=== PATIENT | female | born 1955 | race Caucasian/White ===

== ENCOUNTER → 2016-07-31 | Outpatient (CLI) | payer BC ==
--- NOTE | 2016-07-31 13:32 | PN ---
DATE OF SERVICE: 07/31/2016 A 61-year-old lady had been followed in sleep center for treatment of obstructive sleep apnea hypopnea syndrome. Patient continues successfully sing her CPAP equipment without any significant problems related to the mask or machine. [place] Sleepiness Scale today is 2. I checked patient's CPAP unit. Usage is said 30 out of 30 nights, 26 out of 30 nights for more than 4 hours, average 6.3 hours. Pressure in the machine 8 cm of water. Leak is 6 L per minute, which is great. Apnea-hypopnea index for the last month is only 1.1, which is perfect. MEDICATIONS: Zantac, Flonase, gabapentin, simvastatin, Elavil. PHYSICAL EXAMINATION: During physical exam, the patient is in no distress. VITAL SIGNS: BP 145/84, HR 80, RR 16. Height 5 feet, 5 inches. Weight 185, BMI 30.7. Temp 98.3. HEENT: PERRLA, EOMI. Oropharynx low position of soft palate. NECK: Supple. No JVD, Thyroid is not palpable. LUNGS: Clear to percussion and to auscultation. Good air exchange. No wheezing or rhonchi. HEART: S1, S2 regular. No murmurs, gallops, or rubs. ABDOMEN: Slightly obese. POLICE CAPTAIN PRECINCT: Awake, alert, and oriented x3. Cranial nerves 2 to 7 intact. There is no fasciculation or atrophy noted. No focal deficits observed. IMPRESSION: 1. Obstructive sleep apnea-hypopnea syndrome on full control with CPAP at the pressure of 8 cm of water. Patient demonstrated great compliance with treatment benefiting from treatment. 2. Mild obesity. 3. History of migraines, it is improved. 4. History of TMJ problems. PLAN: 1. Continue treatment with CPAP with the same regimen. 2. Watching weight. 3. Prescription for all necessary CPAP supplies, including mask, tube, filters. 4. No driving if feeling any sleepiness. 5. Follow-up visit in 1 year. Thank you very much for allowing me to participate in management of your patient. Sincerely, Horacio Bello MD, PhD, FAASM Diplomat of [place] [employer], Sleep Medicine Board by [place] [employer] [place] [employer] Certified Medical Dosimetrist of [facility] [place]
== END ==
LOC: SLEEP 10:09
PROVIDERS: ATTEND Internal Medicine
DX: G47.33 Obstructive sleep apnea (adult) (pediatric) (principal); E66.9 Obesity, unspecified; G43.909 Migraine, unspecified, not intractable, without status migrainosus; Z79.899 Other long term (current) drug therapy

== ENCOUNTER → 2016-08-09 | Outpatient (CLI) | payer OTHER, BC ==
[2016-08-09 10:40] LABS: Basophils # (A) 0.1 k/uL (0-0.2); Basophils % (A) 1 %; CH 29.9; CHCM 33.3; Eosinophils # (A) 0.3 k/uL (0-0.7); Eosinophils % (A) 4 %; HGB 13.7 gm/dL (11.4-16.0); Luc # (Auto) 0.29; Luc % (Auto) 3; Lymphocytes # (A) 3.1 k/uL (1.0-4.8); Lymphocytes % (A) 35 %; MCH 30.2 pg (25.0-35.0); MCHC 33.4 g/dL (31.0-37.0); MCV 90.3 fL (80.0-100.0); Mean Platelet Volume 6.8; Monocytes # (A) 0.6 k/uL (0-1.0); Monocytes % (A) 6 %; Neutrophils # (A) 4.5 k/uL (1.3-7.7); Neutrophils % (A) 51 %; RBC 4.54 m/uL (3.80-5.40); RDW 13.3 % (11.5-15.5); WBC 8.8 k/uL (3.8-10.6); WBC (Perox) 8.42
[2016-08-09 10:51] LABS: ALT 47 U/L (9-52); AST 32 U/L (14-36); Alkaline Phosphatase 65 U/L (38-126); Anion Gap 11 mmol/L; Blood Urea Nitrogen 17 mg/dL (7-17); Calcium 9.8 mg/dL (8.4-10.2); Carbon Dioxide 31 mmol/L (22-30); Chloride 100 mmol/L (98-107); Cholesterol 180 mg/dL (<200); Glucose 89 mg/dL (74-99); HDL Cholesterol 78 mg/dL (40-60); Non-African American GFR(MDRD) >60 (>60 ml/min/1.73 sqM); Potassium 4.8 mmol/L (3.5-5.1); Sodium 142 mmol/L (137-145); Total Bilirubin 0.5 mg/dL (0.2-1.3); Total Protein 7.6 g/dL (6.3-8.2); Triglycerides 104 mg/dL (<150)
[2016-08-09 14:30] LABS: Hemoglobin A1C 5.8 % (4.2-6.1)
== END | disposition home or self-care (01) ==
LOC: LABWHC1 10:04
PROVIDERS: ATTEND Internal Medicine Geriatric Medicine
DX: K21.9 Gastro-esophageal reflux disease without esophagitis (principal); R79.9 Abnormal finding of blood chemistry, unspecified; E78.5 Hyperlipidemia, unspecified
CPT/HCPCS: 36415; 80053; 80061; 83036; 84439; 84443; 85025

== ENCOUNTER → 2016-08-26 | Outpatient (CLI) | payer OTHER, BC ==
--- NOTE | 2016-08-27 08:34 | MM ---
Reason for exam: screening (asymptomatic). Last mammogram was performed 3 years ago. History: Patient is postmenopausal. Family history of breast cancer in sister at age 54. Took estrogen for 1 year beginning at age 48. Physical Findings: A clinical breast exam by your physician is recommended on an annual basis and results should be correlated with mammographic findings. MG 3D Screening Mammo W/Cad Bilateral CC and MLO view(s) were taken. Prior study comparison: August 30, 2013, bilateral MG screening mammo w CAD. July 01, 2012, CAD bilateral diagnostic mammogram. November 05, 2009, bilateral diagnostic digital mammog. The breast tissue is heterogeneously dense. This may lower the sensitivity of mammography. Finding: There is a 20 mm circumscribed round mass located 4 cm from the nipple in the lower outer quadrant, anterior position of the left breast also 6mm lesion posterior outer position. New finding since August 30, 2013, July 01, 2012, and November 05, 2009. ASSESSMENT: Incomplete: need additional imaging evaluation, BI-RAD 0 RECOMMENDATION: Ultrasound of the left breast. [facility] will attempt to contact patient to return for ultrasound.
== END | disposition home or self-care (01) ==
LOC: RADMAMWWP 12:58
PROVIDERS: ATTEND Internal Medicine Geriatric Medicine
DX: Z12.31 Encounter for screening mammogram for malignant neoplasm of breast (principal)
CPT/HCPCS: 77063; G0202

== ENCOUNTER → 2016-09-03 | Outpatient (CLI) | payer OTHER, BC ==
--- NOTE | 2016-09-03 10:17 | USB ---
Reason for exam: additional evaluation requested from abnormal screening. History: Patient is postmenopausal. Family history of breast cancer in sister at age 54. Took estrogen for 1 year beginning at age 48. Physical Findings: Nurse did not find any significant physical abnormalities on exam. US Breast Workup LT Left breast ultrasound includes all four quadrants, the retroareolar region and axilla. Finding demonstrates a 10 x 6 x 8mm oval, cystic lesion at 12 o'clock, a 20 x 10 x 17mm oval, cystic lesion at 4 o'clock 4cm from nipple and a 2mm lesion too small to characterize at 9 o'clock. These results were verbally communicated with the patient and result sheet given to the patient on 09/03/16. ASSESSMENT: Benign, BI-RAD 2 RECOMMENDATION: Return to routine screening mammogram schedule for both breasts.
== END | disposition home or self-care (01) ==
LOC: RADUSWWP 09:01
PROVIDERS: ATTEND Internal Medicine Geriatric Medicine
DX: R92.8 Other abnormal and inconclusive findings on diagnostic imaging of breast (principal)

== ENCOUNTER → 2016-09-08 | Outpatient (CLI) | payer OTHER, BC ==
--- NOTE | 2016-09-08 15:36 | MR ---
EXAMINATION TYPE: MR cervical spine wo con DATE OF EXAM: 09/08/2016 COMPARISON: NONE HISTORY: Neck and Arm Pain x4 years TECHNIQUE: Multiplanar, multisequence images of the cervical spine were acquired. C2-C3: No evidence for degenerative disc disease. No disc bulge/herniation or protrusion. No Canal stenosis. Foramina are patent bilaterally. C3-C4: There is a tiny central disc protrusion with minimal anterior thecal sac compression. No AP sp inal canal stenosis is present. Neural foramen are patent C4-C5: Mild disc space narrowing is present. Very minimal posterior endplate disc bulge is present. M ild uncovertebral joint hypertrophy is present. No spinal canal stenosis or significant foraminal mian nosis is present. C5-C6: There is mild disc bulge centrally with mild anterior thecal sac compression. No AP spinal can al stenosis present. No cord contact is evident. No spinal canal stenosis is present. There is mild l eft foraminal narrowing due to uncovertebral joint hypertrophy. C6-C7: No evidence for degenerative disc disease. No disc bulge/herniation or protrusion. No Canal stenosis. Foramina are patent bilaterally. C7-T1: No evidence for degenerative disc disease. No disc bulge/herniation or protrusion. No Canal stenosis. Foramina are patent bilaterally. Cervical segments are intact. There is normal alignment. Cervical spinal cord is of normal signal. Craniovertebral junction relationships are within normal limits. IMPRESSION: Mild disc bulge is present C3-4, C4-5, C5-C6 discussed above. No stenosis is evident. 2. Mild left foraminal narrowing C5-6 due to uncovertebral joint hypertrophy.
== END | disposition home or self-care (01) ==
LOC: RADMRIMAIN 14:40
PROVIDERS: ATTEND Psychiatry & Neurology Neurology
DX: M99.71 Connective tissue and disc stenosis of intervertebral foramina of cervical region (principal); M50.11 Cervical disc disorder with radiculopathy, high cervical region; M48.8X2 Other specified spondylopathies, cervical region; G99.2 Myelopathy in diseases classified elsewhere; R29.2 Abnormal reflex; R26.9 Unspecified abnormalities of gait and mobility
CPT/HCPCS: 72141

== ENCOUNTER → 2017-02-11 | Outpatient (CLI) | payer OTHER, BC ==
--- NOTE | 2017-02-11 17:39 | US ---
EXAMINATION TYPE: US transvaginal DATE OF EXAM: 02/11/2017 COMPARISON: 02/06/2016 CLINICAL HISTORY: Pelvic Pain R10.2. history of left ovarian cyst TECHNIQUE: Transvaginal (TV) Date of LMP: 15 years ago EXAM MEASUREMENTS: Uterus: 6.8 x 3.3 x 5.2 cm Endometrial Stripe: 0.3 cm Right Ovary: 1.0 x 3.1 x 1.6 cm Left Ovary: 5.2 x 4.1 x 5.0 cm 1. Uterus: Anteverted heterogeneous echotexture 2. Endometrium: wnl 3. Right Ovary: wnl 4. Left Ovary: large cyst measures 4.8 x 4.6 x 4.4 cm 5. Bilateral Adnexa: wnl 6. Posterior cul-de-sac: no free fluid IMPRESSION: There is a simple large left ovarian cysts that are appears slightly increased in size co mpared to old exam. Previous exam measures 4.1 cm. Today's exam measures 4.5 cm.
== END | disposition home or self-care (01) ==
LOC: RADUSWWP 16:54
PROVIDERS: ATTEND Internal Medicine Geriatric Medicine
DX: N83.292 Other ovarian cyst, left side (principal)
CPT/HCPCS: 76830

== ENCOUNTER → 2017-03-03 | Outpatient (CLI) | payer OTHER, BC ==
[2017-03-03 11:17] LABS: Basophils # (A) 0.1 k/uL (0-0.2); Basophils % (A) 1 %; Eosinophils # (A) 0.2 k/uL (0-0.7); Eosinophils % (A) 2 %; HCT 40.4 % (34.0-46.0); HGB 13.2 gm/dL (11.4-16.0); Lymphocytes # (A) 3.1 k/uL (1.0-4.8); Lymphocytes % (A) 34 %; MCH 29.9 pg (25.0-35.0); MCHC 32.6 g/dL (31.0-37.0); MCV 91.7 fL (80.0-100.0); Mean Platelet Volume 7.6; Monocytes # (A) 0.7 k/uL (0-1.0); Monocytes % (A) 7 %; Neutrophils % (A) 54 %; Platelet Count 437 k/uL (150-450); RDW 12.7 % (11.5-15.5); WBC 9.2 k/uL (3.8-10.6)
== END | disposition home or self-care (01) ==
LOC: LABPAT 09:59
PROVIDERS: ATTEND Obstetrics & Gynecology Obstetrics
DX: Z01.818 Encounter for other preprocedural examination (principal); Z01.812 Encounter for preprocedural laboratory examination; N83.202 Unspecified ovarian cyst, left side
CPT/HCPCS: 36415; 85025; 93005

== ENCOUNTER 2017-03-10 10:25 | Day surgery (SDC) | payer OTHER, BC ==
[2017-03-03 12:08] VITALS: BMI 30.7
[~2017-03-10 10:25] MED LIST: ACETAMINOPHEN IV (For NPO) 1,000 MG in EMPTY BAG 1 BAG IVPB ONE; DEXAMETHASONE SOD PHOSPHATE 10 MG/ML 1 ML VIAL IV ONE; LACTATED RINGERS 1,000 ML IV SCH; MIDAZOLAM 2 MG/2 ML VIAL IV PRN; SCOPOLAMINE 1.5MG/72HR PATCH TRANSDERM ONE; ceFAZolin IN SWFI 2 GM/20 ML SYRINGE IVP ONE
[2017-03-10] MEDS: ONDANSETRON 4 MG/2 ML VIAL IVP ONE ×2 (11:37→13:42)
[2017-03-10] MEDS ORDERED: KETOROLAC 30 MG/ML 1 ML VIAL ONE (12:06)
[2017-03-10] MEDS ORDERED: NEOSTIGMINE 1 MG/ML 10 ML VIAL ONE (12:06)
[2017-03-10] MEDS ORDERED: DEXAMETHASONE SOD PHOS (MDV) 100 MG/10 ML VIAL ONE (12:06)
[2017-03-10] MEDS ORDERED: fentaNYL (PF) 50 MCG/ML 2 ML AMP ONE (12:06)
[2017-03-10] MEDS ORDERED: ROCURONIUM BROMIDE 10 MG/ML 10 ML VIAL IV ONE (12:06)
[2017-03-10] MEDS ORDERED: SUCCINYLCHOLINE CHLORIDE 100 MG/5 ML SYR IV ONE (12:06)
[2017-03-10] MEDS ORDERED: MIDAZOLAM 2 MG/2 ML VIAL ONE (12:06)
[2017-03-10] MEDS ORDERED: PROPOFOL 10 MG/ML 20 ML VIAL IV ONE (12:06)
[2017-03-10] MEDS ORDERED: GLYCOPYRROLATE 0.2 MG/ML 2 ML VIAL ONE (12:06)
[2017-03-10] MEDS ORDERED: LIDOCAINE 1% INJ 10MG/ML (20 ML MDV) SQ ONE (12:45)
[2017-03-10] MEDS ORDERED: LACTATED RINGERS 1,000 ML IV ONE (12:54)
--- NOTE | 2017-03-10 12:59 | P.OP ---
Date of Procedure: 03/10/17 Preoperative Diagnosis: Left ovarian cyst, left lower quadrant pain Postoperative Diagnosis: Same Procedure(s) Performed: Operative laparoscopy left salpingo-oophorectomy Anesthesia: GETA Surgeon: Sophie Hearn Estimated Blood Loss (ml): 10 IV fluids (ml): 850 Urine output (ml): 50 Pathology: other (Left ovary and tube) Condition: stable Disposition: PACU Indications for Procedure: Large left ovarian cyst, simple in nature, pelvic pain Operative Findings: Left simple ovarian cyst Description of Procedure: After informed consent was obtained in the preoperative area and risks were reviewed in detail including but not limited to infection, bleeding, damage to bladder, bowel, ureteric injury patient signed consent and was taken back to the operating room. Gen. anesthesia was obtained by the anesthesia per without difficulty. She was then prepped and draped in normal sterile fashion in the dorsal lithotomy position red rubber catheter was then used to drain the bladder clear yellow urine. A weighted speculum was placed in the posterior the anterior lip of the cervix is visualized and grasped with a single-tooth tenaculum. An acorn uterine regular diet was advanced into the cervical canal as a means to maneuver the uterus throughout the procedure. Attention was turned to the patient's abdomen where in the umbilical fold small incision is made and through this incision, the Veress needle is placed and once it was deemed to be in appropriate position with a drop of CO2 pressure with insufflation of CO2 gas to his insufflation was allowed to occur.. 3 L of gas were used to obtain pneumoperitoneum at this time a 5 mm trocar with a laproscope in place placed through the skin incision and toward the pneumoperitoneum. The left ovarian cyst was visualized at this time the additional port sites are placed in the right lower quadrant under direct visualization this is a 5 mm trocar placed without difficulty. The additional port site on the left lower quadrant a 10 mm trocar and sleeve was placed in addition under direct visualization. The left fallopian tube is elevated and the utero-ovarian ligament is grasped with the LigaSure device and transected this continued through the broad toward the infundibulopelvic ligament the IP was then grasped and coagulated distally and proximally and divided. Hemostasis was appreciated throughout. The left ovary and tube was then placed in an Endo Catch bag and delivered through the 10 mm port incision. Skin incisions were then closed after excellent hemostasis was noted. The skin incisions were closed with 4-0 Vicryl in a subcuticular fashion band aids were applied as needed. The CO2 tenaculum was removed from the anterior lip of the cervix and hemostasis was appreciated. OR correct 2 and patient tolerated procedure well
[2017-03-10 13:15] VITALS: RESP 16; TEMP 97.1
[2017-03-10] MEDS: MORPHINE SULFATE 4 MG/ML SYRINGE IV PRN ×2 (13:39→13:48)
[2017-03-10] MEDS ORDERED: diphenhydrAMINE 50 MG/ML 1 ML VIAL IVP ONE ×2 (13:52)
[2017-03-10] MEDS ORDERED: HYDROcodone/APAP 5-325MG 1 EACH TAB PO ONE (15:10)
[2017-03-10 16:36] VITALS: PULSE 58
[2017-03-10 16:46] VITALS: BP 123/68
== END 2017-03-10 17:28 | disposition home or self-care (01) ==
LOC: OR 10:25
PROVIDERS: ATTEND Obstetrics & Gynecology Obstetrics
DX: D27.1 Benign neoplasm of left ovary (principal); J45.909 Unspecified asthma, uncomplicated; E78.00 Pure hypercholesterolemia, unspecified; G47.33 Obstructive sleep apnea (adult) (pediatric); Z79.899 Other long term (current) drug therapy; Z88.1 Allergy status to other antibiotic agents; Z88.5 Allergy status to narcotic agent; Z88.8 Allergy status to other drugs, medicaments and biological substances
CPT/HCPCS: 88307; 58661; J2250; J2270; J1200; J1100 ×2; J2710; J2405; J2001; J3010; J1885; J0131; J0330; J2704

== ENCOUNTER → 2017-08-20 | Outpatient (CLI) | payer OTHER, BC ==
--- NOTE | 2017-08-20 12:11 | SFUN ---
SLEEP CENTER FOLLOW UP NOTE DATE OF SERVICE: 08/20/2017 A 62-year-old lady who has been followed in the Sleep Center for treatment of obstructive sleep apnea-hypopnea syndrome. Patient was using her CPAP for many years and told us years she was fine with the CPAP, but for the last several months, patient developed some problem related to the machine. She had multiple awakenings from sleep, although she is using the machine about the same way as she usually does, and she feels some discomfort in her face. She continued to use the same nasal pillow mask as before. I checked patient's CPAP unit. CPAP pressure is 8 cm of water. It is 100% of the time more than 4 hours. Average usage is 6.5 hours. Pressure is 8 cm of water. Sleep is 13 L/minute which is in normal range. Apnea-hypopnea index for the last month only 0.9, which is normal for the last 6 months is 0.8, which is absolutely normal. [place] Sleepiness Scale today is 7. MEDICATION: Flonase, gabapentin, simvastatin, Elavil. PHYSICAL EXAM: Patient in no distress. BP 129/65, HR 79, RR 18, height 5, 5 inches, weight 189.0, which increased weight on about 4 pounds compared to the previous visit. BMI 30.9, temperature 99.7, oxygen saturation room air 95%. OROPHARYNX: Low position of soft palate. ABDOMEN: Sightly obese. Neck Supple, no JVD. Thyroid is not palpable. LUNGS Clear to percussion and to auscultation. Good air exchange. No wheezing or rhonchi. HEART S1, S2 regular. No murmurs, gallops, or rubs. EXTREMITIES No clubbing or cyanosis. BODY SHOP ESTIMATOR Awake, alert, and oriented X3. Cranial nerves 2 to 7 intact. There is no fasciculation or atrophy. noted. No focal deficits observed. IMPRESSION: 1. Obstructive sleep apnea-hypopnea syndrome. Patient demonstrated great compliance with treatment, benefitting from treatment. 2. Mild obesity. 3. History of TMJ problem in the past. 4. History of migraines, not at the present time. 5. Status post oophorectomy on left side for cyst in February of 2017. PLAN: 1. I will adjust pressure in the machine to automatic regimen so with a maximal pressure of 8 and minimal pressure of 5. 2. Patient will continue to use her CPAP equipment every night. 3. Sleep hygiene with regular time in bed for at least 8 hours. 4. No driving if feeling sleepiness. 5. I will see patient for followup visit in 1 month. Thank you very much for allowing me to participate in the management of your patient. Sincerely, Horacio Bello MD, PhD, FAAS Diplomat of [place] [employer] Special[employer] [employer] Medicine Accounts Receivable Associate of [facility] [place] MMODL / DANNYN: [id number] /
== END | disposition home or self-care (01) ==
LOC: SLEEP 10:25
PROVIDERS: ATTEND Internal Medicine
DX: G47.33 Obstructive sleep apnea (adult) (pediatric) (principal); E66.9 Obesity, unspecified; Z99.89 Dependence on other enabling machines and devices; Z79.52 Long term (current) use of systemic steroids; Z79.899 Other long term (current) drug therapy; Z87.39 Personal history of other diseases of the musculoskeletal system and connective tissue; Z86.69 Personal history of other diseases of the nervous system and sense organs; Z90.721 Acquired absence of ovaries, unilateral; Z68.30 Body mass index [BMI] 30.0-30.9, adult

== ENCOUNTER → 2017-08-28 | Outpatient (CLI) | payer OTHER, BC ==
--- NOTE | 2017-08-31 12:29 | MM ---
Reason for exam: screening (asymptomatic). Last mammogram was performed 1 year ago. History: Patient is postmenopausal. Family history of breast cancer in sister at age 54. Took estrogen for 1 year beginning at age 48. Physical Findings: A clinical breast exam by your physician is recommended on an annual basis and results should be correlated with mammographic findings. MG Screening Mammo w CAD Bilateral CC and MLO view(s) were taken. Prior study comparison: August 26, 2016, bilateral MG 3d screening mammo w/cad. August 30, 2013, bilateral MG screening mammo w CAD. The breast tissue is heterogeneously dense. This may lower the sensitivity of mammography. Finding: There is a new typically benign 7 mm equal density (isodense), partially obscured round mass in the upper outer quadrant, middle position of the left breast. New finding since August 26, 2016 and August 30, 2013. ASSESSMENT: Incomplete: need additional imaging evaluation, BI-RAD 0 RECOMMENDATION: Ultrasound of the left breast. [facility] will attempt to contact patient to return for ultrasound.
== END | disposition home or self-care (01) ==
LOC: RADMAMWWP 09:45
PROVIDERS: ATTEND Obstetrics & Gynecology Obstetrics
DX: Z12.31 Encounter for screening mammogram for malignant neoplasm of breast (principal); Z80.3 Family history of malignant neoplasm of breast
CPT/HCPCS: 77067

== ENCOUNTER → 2017-09-03 | Outpatient (CLI) | payer OTHER, BC ==
--- NOTE | 2017-09-03 12:09 | SFUN ---
SLEEP CENTER FOLLOW UP NOTE DATE OF SERVICE: 09/03/2017 A 62-year-old lady who has been followed in sleep center for treatment of obstructive sleep apnea-hypopnea syndrome. Patient continued to use her CPAP equipment every night. Recently she developed some problems with the CPAP, which she did not have for several years. The patient was able to use CPAP equipment well for several years and just recently again developed some problem while using her CPAP. She developed some discomfort in her face in the frontal area and mid face area. A CPAP titration done with CPAP titration and pressure up to 9 cm of water. On all pressures, respiration was in normal range. Today, check her CPAP unit. CPAP pressure is 6 cm of water. Usage is 28/30 nights more than 4 hours. Average usage is 6.4 hours. Leak 10 L/minute which is in more normal range. Apnea-hypopnea index reading only 1.1, which is totally normal. [place] Sleepiness Scale today is 14. I discussed results of the sleep study with the patient. MEDICATIONS: Flonase, gabapentin, simvastatin, Elavil. PHYSICAL EXAM: During physical exam, patient in no distress. VITAL SIGNS: BP 156/67, HR 88, blood pressure on the left arm 134/64, temp is 98.5, oxygen saturation room air 98%. Height 5 feet 5 inches, weight 189, BMI 30.9. HEENT: PERRLA, EOMI. Slight restriction of nasal breathing bilaterally. Moderately low position of soft palate. NECK: Supple, no JVD. Thyroid is not palpable. LUNGS: Clear to percussion and to auscultation. Good air exchange. No wheezing or rhonchi. HEART: S1, S2 regular. No murmurs, gallops, or rubs. ABDOMEN: Slightly obese. EXTREMITIES: No clubbing or cyanosis. INSPECTOR BALANCE WHEEL MOTION: Awake, alert, and oriented X3. Cranial nerves 2 to 7 intact. There is no fasciculation or atrophy. noted. No focal deficits observed. IMPRESSION: 1. Obstructive sleep apnea-hypopnea syndrome. The patient demonstrated very good compliance with treatment benefitting from treatment. 2. Mild obesity. 3. History of TMJ problem in the past. 4. History of migraines in the past. 5. Status post oophorectomy on the left side for cyst in February of 2017. 6. History of allergy to . PLAN: 1. I decreased pressure in the machine down to the lowest level of 4.5 to 5 cm of water. 2. Patient will continue to use CPAP equipment. 3. Patient was recommended to be checked with Ear, Nose and Throat physician regarding condition of her sinuses and nose. 4. Watching and losing weight. 5. No driving if feeling sleepiness. 6. Followup visit in about 1 month. Thank you very much for allowing me to participate in management of your patient. Sincerely, Hoarcio Bello MD, PhD, FAASM Diplomat of [place] [employer] Specialties [place] [employer] Internal Medicine Deputy Director of [facility] [place] MMODL / IJN: [id number] /
== END | disposition home or self-care (01) ==
LOC: SLEEP 10:02
PROVIDERS: ATTEND Internal Medicine
DX: G47.33 Obstructive sleep apnea (adult) (pediatric) (principal); E66.9 Obesity, unspecified; Z68.30 Body mass index [BMI] 30.0-30.9, adult; Z87.39 Personal history of other diseases of the musculoskeletal system and connective tissue; Z86.69 Personal history of other diseases of the nervous system and sense organs; Z90.721 Acquired absence of ovaries, unilateral; Z91.048 Other nonmedicinal substance allergy status; Z79.899 Other long term (current) drug therapy

== ENCOUNTER → 2017-09-07 | Outpatient (CLI) | payer OTHER, BC ==
--- NOTE | 2017-09-10 07:56 | USB ---
Reason for exam: additional evaluation requested from abnormal screening. History: Patient is postmenopausal. Family history of breast cancer in sister at age 54. Took estrogen for 1 year beginning at age 48. Physical Findings: Nurse Summary: bilateral nodularity, all soft, movable (nurse ts). US Breast Workup Limited LT Left limited breast ultrasound including focal area of concern, retroareolar and axilla demonstrates a 0.6 x 0.5 x 0.6 cm cystic lesion at 4:00 o'clock, a 0.4 x 0.3 x 0.4 cm cystic lesion at 4:00 o'clock and a 1.1 x 0.8 x 1.0 cm cystic lesion at 4:00 o'clock. Simple cysts. These results were verbally communicated with the patient and result sheet given to the patient on 09/07/17. ASSESSMENT: Benign, BI-RAD 2 RECOMMENDATION: Mammogram of both breasts in 1 year.
== END | disposition home or self-care (01) ==
LOC: RADUSWWP 08:15
PROVIDERS: ATTEND Obstetrics & Gynecology Obstetrics
DX: R92.8 Other abnormal and inconclusive findings on diagnostic imaging of breast (principal)

== ENCOUNTER → 2017-09-17 | Outpatient (CLI) | payer OTHER, BC ==
--- NOTE | 2017-09-17 11:56 | SFUN ---
SLEEP CENTER FOLLOW UP NOTE DATE OF SERVICE: 09/17/2017 This 62-year-old lady had been followed in sleep center for treatment of obstructive sleep apnea-hypopnea syndrome. For the last several months she is experiencing discomfort in her face. During previous visit several weeks ago, I changed pressure in the machine down. For that period of time she feels better and she had x-ray of her teeth and that x-ray according to patient showed some swelling in her sinuses. I checked patient's CPAP unit. CPAP pressure is 5 cm of water. Usage is 26/30 nights for more than 4 hours. Average usage 5.8 hours. Total apnea-hypopnea index for the last month in the range of 2. For the last night, it is 1.3 only, which is totally normal. Leak is 8 L/minute, which is acceptable. [place] Sleepiness Scale today is 7. MEDICATIONS: Flonase, gabapentin, simvastatin, Elavil, Martina. PHYSICAL EXAMINATION: During physical exam, patient in no distress. VITAL SIGNS: BP 142/78, HR 75, RR 18, oxygen saturation room air 97%. Temperature 98.7, weight 187.2. HEENT: PERRLA, EOMI. Oropharynx moderately low position of soft palate. IMPRESSION: 1. Obstructive sleep apnea-hypopnea syndrome on full control with CPAP at 5 cm of water. Patient demonstrated great compliance with treatment benefitting from treatment. 2. Mild obesity. 3. History of temporomandibular joint problems in the past. 4. Sinusitis. 5. Status post oophorectomy on the left side for cyst in the past. PLAN: 1. Continue treatment with CPAP. 2. Evaluation by Ear, Nose, and Throat physician for possible sinus problem. 3. Losing weight. 4. Sleep hygiene with regular time in bed for least 8 hours. 5. No driving if feeling any sleepiness. Thank you very much for allowing me to participate in management of your patient. Sincerely, Horacio Bello MD, PhD, FAASM Diplomat of [place] [employer] Specialties [place] Board of Internal Medicine Child Care Group Leader of [facility] [place] MMODL / DANNYN: [id number] /
== END | disposition home or self-care (01) ==
LOC: SLEEP 10:23
PROVIDERS: ATTEND Internal Medicine
DX: G47.33 Obstructive sleep apnea (adult) (pediatric) (principal); E66.9 Obesity, unspecified; J32.9 Chronic sinusitis, unspecified; Z90.721 Acquired absence of ovaries, unilateral; Z99.89 Dependence on other enabling machines and devices; Z79.899 Other long term (current) drug therapy

== ENCOUNTER → 2018-08-26 | Outpatient (CLI) | payer OTHER, BC ==
--- NOTE | 2018-08-26 12:26 | SFUN ---
SLEEP CENTER FOLLOW UP NOTE DATE OF SERVICE: 08/26/2018 A 63-year-old lady who has been followed in the Sleep Center for treatment of obstructive sleep apnea-hypopnea syndrome. During the last visit because patient developed some discomfort in sinuses, possibly related to the pressure, I decreased pressure in the machine to the maximum level 5 and at that time reading of her machine showed apnea-hypopnea index in the range of 2. Patient continued to use her CPAP equipment but still has discomfort in her sinuses and feels that pressure may not be enough for her because according to her friends she has snoring while using her CPAP. I checked her CPAP unit. CPAP pressure is 5 cm. For the last few year she used it 296 nights out of 365 nights and 282 nights more than 4 hours. Average usage is 6.3 hours. Pressure is 5 cm of water. Leak is 29 L/minute. She is using now full-face mask and for the last year apnea-hypopnea index reading is 14.1, which is significantly higher than on the previous visit. [place] Sleepiness Scale today is 3, which is normal. Patient had an eye evaluation by information assurance and has been found to significant allergy to dust. MEDICATIONS: Flonase, gabapentin, simvastatin, Elavil, Zyrtec. PHYSICAL EXAM: Patient in no distress. BP 136/77, HR 73, RR 14, height 5, 5, weight 183.9, which is 7 pounds less than during last visit, temperature 99.7, oxygen saturation at room air 99%. Moderately low position of soft palate. Neck Supple, no JVD. Thyroid is not palpable. LUNGS Clear to percussion and to auscultation. Good air exchange. No wheezing or rhonchi. HEART S1, S2 regular. No murmurs, gallops, or rubs. ABDOMEN Soft and nontender. Bowel sounds are present. No organomegaly appreciated. EXTREMITIES No clubbing or cyanosis. COATING MIXER SUPERVISOR Awake, alert, and oriented X3. Cranial nerves 2 to 7 intact. There is no fasciculation or atrophy. noted. No focal deficits observed. IMPRESSION: 1. Obstructive sleep apnea-hypopnea syndrome. Patient demonstrated good compliance with treatment benefitting from treatment, but still sometimes snoring at the pressure of 5 cm of water. 2. Allergy to dust. 3. Mild obesity. 4. History of temporomandibular joint problems in the past. 5. Sinusitis. 6. Status post oophorectomy on the left side for cyst in the past. PLAN: 1. Patient will continue to use CPAP equipment every night. 2. I will change regimen of CPAP to automatic with range of pressure from 5-9 cm of water. 3. Sleep hygiene with regular time in bed for at least 8 hours. 4. No driving if feeling sleepiness. 5. To replace full-face mask. 6. Followup visit in several weeks. Thank you very much for allowing me to participate in the management of your patient. Sincerely, Horacio Bello MD, PhD, FAASM Diplomat of [place] [employer] Specialties [place] [employer] of [employer] Medicine Fire Observer of [facility] [place] MMODL / IJN: [id number] /
== END ==
LOC: SLEEP 10:59
PROVIDERS: ATTEND Internal Medicine
DX: G47.33 Obstructive sleep apnea (adult) (pediatric) (principal); E66.9 Obesity, unspecified; J32.9 Chronic sinusitis, unspecified; Z90.722 Acquired absence of ovaries, bilateral; Z87.898 Personal history of other specified conditions; Z99.89 Dependence on other enabling machines and devices; Z91.048 Other nonmedicinal substance allergy status; Z87.39 Personal history of other diseases of the musculoskeletal system and connective tissue; Z79.899 Other long term (current) drug therapy

== ENCOUNTER → 2018-09-09 | Outpatient (CLI) | payer OTHER, BC ==
--- NOTE | 2018-09-09 11:36 | SFUN ---
SLEEP CENTER FOLLOW UP NOTE DATE OF SERVICE: 09/09/2018 A 63-year-old lady who had been followed in the Sleep Center for treatment of obstructive sleep apnea-hypopnea syndrome. During the previous visit when patient was on CPAP at 5 cm of water, apnea-hypopnea index was significantly increased to 14.1, and I changed the range of the pressure from 5 to 9 cm of water. Patient also tried a full- face mask for the 1 week and continued to use nasal pillow mask for another week. With the range of pressure up to 9, she feels that the pressure is too high for her and it is difficult for her to use this level of pressure. [place] Sleepiness Scale today is 8. I checked her CPAP unit, range of the pressure 5-9 cm of water. Average pressure for the last week 8.9 cm of water, leak is 4 L/minute, which is absolutely normal. Apnea- hypopnea index for the last week is only 1.1, which is perfect. Patient used equipment every night for the whole night. Average usage 8.5 hours, 100% more than 4 hours per night. MEDICATIONS: Flonase, gabapentin, simvastatin, Elavil, Zyrtec. PHYSICAL EXAM: Patient in no distress. Blood pressure is 135/76, HR 80, RR 16, temperature 99.2, oxygen saturation at room air 96%. Height 5, 5, weight 183. OROPHARYNX: Low position of soft palate, Mallampati 3. Neck Supple, no JVD. Thyroid is not palpable. LUNGS Clear to percussion and to auscultation. Good air exchange. No wheezing or rhonchi. HEART S1, S2 regular. No murmurs, gallops, or rubs. ABDOMEN Soft and nontender. Bowel sounds are present. No organomegaly appreciated. EXTREMITIES No clubbing or cyanosis. DRILLER MULTIPLE SPINDLE Awake, alert, and oriented x3. Cranial nerves 2 to 7 intact. There is no fasciculation or atrophy noted. No focal deficits observed. IMPRESSION: 1. 100% compliance with treatment, total normalization of breathing with increased CPAP pressure but patient has some difficulties related to the pressure. 2. Mild obesity. 3. Allergy to dust. 4. History of temporomandibular joint problems in the past. 5. Sinusitis. 6. Status post oophorectomy on the left side for cyst in the past. PLAN: 1. I will change maximal pressure down to 7 cm of water. 2. I will put ramp to automatic regimen. 3. Patient will continue to use equipment every night for the whole night. 4. Watching weight. 5. Sleep hygiene with regular time in bed for at least 7-1/2 hours. 6. No driving if feeling sleepiness. Thank you very much for allowing me to participate in the management of your patient. Sincerely, Horacio Bello MD, PhD, FAASM Diplomat of [place] [employer] Specialties [place] Board of Internal Medicine Program Manager Environmental Planning of [facility] [place] MMODL / IJN: [id number] /

== ENCOUNTER → 2018-09-16 | Outpatient (CLI) | payer OTHER, BC ==
--- NOTE | 2018-09-16 16:51 | PN ---
PROGRESS NOTE DATE OF SERVICE: 09/16/2018 63-year-old lady has been followed in Sleep Center for treatment of obstructive sleep apnea-hypopnea syndrome. During the last 2 visits, on the first visit, pressure in the patient's CPAP unit was 5 cm of water and apnea-hypopnea index was 14.1, and I subsequently increased pressure to 9 cm of water. With that pressure, apnea-hypopnea index reduced to 1.1, but patient felt that the pressure is slightly high for her. During the next visit, I changed the maximal pressure to 7 cm of water. Today, patient came back after she is using her CPAP unit at the range of pressure of 5-7 with automatic REM. The patient was able to use equipment with this pressure without significant problems. I checked her CPAP unit again. Pressure is in the range from 4- 7 with average pressure of 7 cm of water. The usage is every night with average usage is 7.8 hours per night. Leak is only 4 L/minute which is absolutely normal range. Apnea-hypopnea index only 2.2, which is acceptable. MEDICATIONS: Zantac, Flonase, gabapentin, simvastatin, Elavil. PHYSICAL EXAM: Patient in no distress. BP 135/79, HR 72, RR 16, weight 183, height 5 feet 5 inches, body mass index 30.2, temperature 99.0, oxygen at room air 98%. Oropharynx low position of soft palate. Mallampati 3. Neck Supple, no JVD. Thyroid is not palpable. LUNGS Clear to percussion and to auscultation. Good air exchange. No wheezing or rhonchi. HEART S1, S2 regular. No murmurs, gallops, or rubs. ABDOMEN: Slightly obese. Soft and nontender. Bowel sounds are present. No organomegaly appreciated. EXTREMITIES No clubbing or cyanosis. CONTRACTS ATTORNEY Awake, alert, and oriented X3. Cranial nerves 2 to 7 intact. There is no fasciculation or atrophy. noted. No focal deficits observed. IMPRESSION: 1. Great compliance with CPAP therapy, benefitting from treatment normalization of respiration at the pressure of 7 cm of water. 2. Allergy to dust. 3. Mild obesity. 4. History of temporomandibular joint problems. 5. History of sinusitis. 6. Status post oophorectomy on the left side in the past. PLAN: 1. Patient will continue to use CPAP equipment every night for the whole night. 2. Watching and losing weight. 3. Sleep hygiene with regular time in bed for at least 7-1/2 to 8 hours. 4. No driving if feeling sleepiness. Thank you very much for allowing me to participate in management of your patient. Sincerely, Horacio Bello MD, PhD, FAASM Diplomat of [place] Board [employer] Specialties [employer] Board of Internal Medicine Fender Mechanic of [facility] [place] MMODL / DANNYN: [id number] /
== END | disposition home or self-care (01) ==
LOC: SLEEP 13:20
PROVIDERS: ATTEND Internal Medicine
DX: G47.33 Obstructive sleep apnea (adult) (pediatric) (principal); J30.89 Other allergic rhinitis; E66.9 Obesity, unspecified; Z68.30 Body mass index [BMI] 30.0-30.9, adult; Z87.09 Personal history of other diseases of the respiratory system; Z87.39 Personal history of other diseases of the musculoskeletal system and connective tissue; Z99.89 Dependence on other enabling machines and devices; Z90.721 Acquired absence of ovaries, unilateral; Z79.899 Other long term (current) drug therapy

== ENCOUNTER → 2019-01-31 | Outpatient (CLI) | payer OTHER, BC ==
--- NOTE | 2019-01-31 16:35 | BD ---
EXAMINATION TYPE: Axial Bone Density DATE OF EXAM: 01/31/2019 COMPARISON: 11/01/2009 CLINICAL HISTORY: 63-year-old female postmenopausal screening Height: 64.5 IN Weight: 185 LBS FRAX RISK QUESTIONS: Secondary Osteoporosis: 3. Menopause before 45: AGE 46 RISK FACTORS HISTORY OF: Active: YES Diet low in dairy products/other sources of calcium: YES Postmenopausal woman: AGE 46 MEDICATIONS: Additional Medications: CALCIUM, VIT D, ELAVIL, GABAPENTIN, SIMVASTATIN, ZYRTEC, FLONASE EXAM MEASUREMENTS: Bone mineral densitometry was performed using the Truzip System. Bone mineral density as measured about the Lumbar spine is: ----- L1-L4(G/cm2): 1.281 T Score Values are as follows: ----- L2: -0.3 ----- L3: 1.7 ----- L4: 1.8 ----- L1-L4: 0.8 Bone mineral density has: Decreased -1.0% since study of: 11/01/2009 Bone mineral density about the R hip (g/cm2): 0.885 Bone mineral density about the L hip (g/cm2): 0.916 T Score values are as follows: -----R Neck: -1.1 -----L Neck: -0.9 -----R Total: 0.1 -----L Total: 0.4 Bone mineral density has: Decreased -4.0% since study of: 11/01/2009 IMPRESSION: Osteopenia (T Score between -2.5 and -1). There is slightly increased risk of fracture and the patient may be considered for treatment. Re-Screen 2-5 years. NOTE: T-SCORE=SD OF THE YOUNG ADULT MEAN.
--- NOTE | 2019-02-04 11:10 | MM ---
Reason for exam: screening (asymptomatic). Last mammogram was performed 1 year and 5 months ago. History: Patient is postmenopausal. Family history of breast cancer in sister at age 54. Took estrogen for 1 year beginning at age 48. Physical Findings: A clinical breast exam by your physician is recommended on an annual basis and results should be correlated with mammographic findings. MG Screening Mammo w CAD Bilateral CC and MLO view(s) were taken. Prior study comparison: August 28, 2017, bilateral MG screening mammo w CAD. August 26, 2016, bilateral MG 3d screening mammo w/cad. The breast tissue is heterogeneously dense. This may lower the sensitivity of mammography. Finding: There is a possible 7 mm obscured oval mass in the upper outer quadrant, middle position of the left breast. ASSESSMENT: Incomplete: need additional imaging evaluation, BI-RAD 0 RECOMMENDATION: Special view mammogram of the left breast. If lesion persists on supplemental views, image directed ultrasound is recommended. [facility] will attempt to contact patient to return for supplemental views and ultrasound if indicated.
== END | disposition home or self-care (01) ==
LOC: RADMAMWWP 10:05
PROVIDERS: ATTEND Internal Medicine Geriatric Medicine
DX: Z12.31 Encounter for screening mammogram for malignant neoplasm of breast (principal); M85.80 Other specified disorders of bone density and structure, unspecified site
CPT/HCPCS: 77067; 77080

== ENCOUNTER → 2019-08-09 | Outpatient (CLI) | payer OTHER, BC ==
--- NOTE | 2019-08-09 11:08 | MM ---
Reason for exam: additional evaluation requested from abnormal screening. Last mammogram was performed 6 months ago. History: Patient is postmenopausal. Family history of breast cancer in sister at age 54. Took estrogen for 1 year beginning at age 48. Physical Findings: Nurse did not find any significant physical abnormalities on exam. MG Work Up Mamm w CAD LT Spot compression CC, spot compression MLO, and ML view(s) were taken of the left breast. Prior study comparison: January 31, 2019, bilateral MG screening mammo w CAD. August 28, 2017, bilateral MG screening mammo w CAD. The breast tissue is heterogeneously dense. This may lower the sensitivity of mammography. There is chronic nodularity in the left breast. There is no discrete abnormality including area of concern. These results were verbally communicated with the patient and result sheet given to the patient on 08/09/19. ASSESSMENT: Benign, BI-RAD 2 RECOMMENDATION: Follow-up diagnostic mammogram of both breasts in 6 months. Back on schedule January 2020.
== END | disposition home or self-care (01) ==
LOC: RADMAMWWP 10:11
PROVIDERS: ATTEND Internal Medicine Geriatric Medicine
DX: R92.8 Other abnormal and inconclusive findings on diagnostic imaging of breast (principal)
CPT/HCPCS: 77065

== ENCOUNTER → 2019-08-18 | Outpatient (CLI) | payer BC, OTHER ==
--- NOTE | 2019-08-18 11:18 | SFUN ---
SLEEP CENTER FOLLOW UP NOTE DATE OF SERVICE: 08/18/2019 A 64-year-old lady who has been followed in the Sleep Center for treatment of obstructive sleep apnea-hypopnea syndrome. The patient continued to use CPAP equipment every night but recently feels that she is not so much refreshed in the morning as before. [place] Sleepiness Scale today is 3. I checked her CPAP unit. Usage is 30/30 nights. Usage more than 4 hours, 26/30 nights with average uses 6.5 hours per night. Leak is 16 L/minutes which is borderline. Range of the pressure of 4-7, usual pressure in the range of 6.9, so close to maximal. Apnea- hypopnea index is 6.0, which is slightly above normal range. MEDICATIONS: Elavil, simvastatin, gabapentin, Zyrtec. PHYSICAL EXAM: Patient in no distress. BP 138/74, HR 84, RR 16, height 5, 5, weight 198, body mass index 31.2. Patient increase her weight in 5 pounds since last visit. Temperature 99.1. Oxygen saturation at room air 95%. OROPHARYNX: Low position of soft palate. Mallampati 3. IMPRESSION: 1. Obstructive sleep apnea-hypopnea syndrome. Patient demonstrated great compliance with treatment. 2. Apnea-hypopnea index slightly increased. Patient does not feel fully refreshed after sleep. 3. Obesity. Patient increased weight of 5 pounds. 4. Allergic to dust. 5. History of TMJ problems. 6. History of sinusitis. 7. Status post oophorectomy on the left side in the past. PLAN: 1. I increased range of the pressure to 8.4 cm of water. Previously when it was 9, patient felt pressure is too much. 2. Patient will continue to use PAP equipment every night for the whole night. 3. Sleep hygiene with regular time in bed for at least 7-1/2 to 8 hours. 4. Precautions related to driving. No driving if feeling sleepiness. 5. I will maintain all necessary prescription for PAP supplies including mask, tube, filters. 6. Watching weight. 7. No driving if feeling sleepiness. 8. Follow-up visit in 6 months or earlier if patient has any problems. Thank you very much for allowing me to participate in the management of your patient. Sincerely, Horacio Bello MD, PhD, FAASM Diplomat of [place] Board [employer] Specialties [place] Board of Internal Medicine Renal Nurse of [facility] [place] MMWEI / LORENA: [id number] /
== END | disposition home or self-care (01) ==
LOC: SLEEP 09:57
PROVIDERS: ATTEND Internal Medicine
DX: G47.33 Obstructive sleep apnea (adult) (pediatric) (principal); E66.9 Obesity, unspecified; J30.89 Other allergic rhinitis; Z99.89 Dependence on other enabling machines and devices; Z90.721 Acquired absence of ovaries, unilateral; Z87.09 Personal history of other diseases of the respiratory system; Z87.39 Personal history of other diseases of the musculoskeletal system and connective tissue

== ENCOUNTER → 2019-11-09 | Outpatient (CLI) | payer BC, OTHER | END | disposition home or self-care (01) | LOC: LABWHC1 12:50 | PROVIDERS: ATTEND Nurse Practitioner Gerontology | DX: R19.7 Diarrhea, unspecified (principal); R05 Cough | CPT/HCPCS: U0003; C9803 ==

== ENCOUNTER → 2019-12-22 | Outpatient (CLI) | payer BC ==
--- NOTE | 2019-12-22 18:49 | SFUN ---
SLEEP CENTER FOLLOW UP NOTE DATE OF SERVICE: 12/22/2019. This is a 64-year-old lady who has been followed in Sleep Center for treatment of obstructive sleep apnea-hypopnea syndrome. Patient continues to use her CPAP equipment every night. Sometimes she has problems related to her nose and that is why during previous visit I changed her regimen of automatic machine from 9 cm of water maximal pressure to 8.4 cm of water maximum pressure. [place] Sleepiness Scale today is 3 which is totally normal. I checked patient's CPAP unit. Range of the pressure 4 to 8.4 cm of water. Average pressure 8.4 cm of water, usage 29/30 nights for more than 4 hours. Average usage is 6.7 hours per night. Leak is 10 L/minute. Apnea-hypopnea index for the last 6 months 5.2, slightly higher for the last month at 7.6. MEDICATIONS: Simvastatin 20 mg once a day, gabapentin 600 mg once a day, Elavil 10 mg once a day, Zyrtec 10 mg once a day, Flonase nasal spray twice a day. PHYSICAL EXAMINATION: GENERAL: Patient in no distress. VITAL SIGNS: BP 159/88, HR 97, RR 15, height 5 feet 5 inches, weight 191.8, temperature 99, oxygen saturation on room air 96%. HEENT: PERRLA, EOMI. Oropharynx low position of soft palate, Mallampati 3. NECK: Supple, no JVD. Thyroid is not palpable. LUNGS: Clear to percussion and to auscultation. Good air exchange. No wheezing or rhonchi. HEART: S1, S2 regular. No murmurs, gallops, or rubs. ABDOMEN: Soft and nontender. Bowel sounds are present. No organomegaly appreciated. EXTREMITIES: No clubbing or cyanosis. CUSTOMS OFFICER: Awake, alert, and oriented X3. Cranial nerves 2 to 7 intact. There is no fasciculation or atrophy. noted. No focal deficits observed. IMPRESSION: 1. Obstructive sleep apnea-hypopnea syndrome. Patient demonstrated great compliance with treatment benefitting from treatment. Sometimes she still has discomfort related to nose. 2. History of sinusitis. 3. Obesity. 4. Allergy to dust. 5. History of TMJ problems. 6. Status post oophorectomy. 7. Increased blood pressure in the office today. PLAN: 1. I discussed with the patient extensively options for adjustments of humidifier. 2. Decision to keep the pressure in the CPAP unit the same as it is now. Increasing pressure may increase more problems with the nose for the patient. 3. Sleep hygiene with regular time in bed for at least 7-1/2 to 8 hours. 4. Precautions related to driving. No driving if feeling sleepiness. 5. I will maintain all necessary prescription for PAP supplies including mask, tube, filters. 6. Watching weight. 7. No driving if feeling sleepiness. 8. Follow-up visit in 6 months or earlier if patient has any problems. Thank you very much for allowing me to participate in management of your patient. Sincerely, Horacio Bello MD, PhD, FAASM Diplomat of [employer] Board of Medical Specialties Thai Board of Internal Medicine Die Designer Apprentice of [facility] [place] [id number] / LORENA: [id number] /
== END | disposition home or self-care (01) ==
LOC: SLEEP 10:18
PROVIDERS: ATTEND Internal Medicine
DX: G47.33 Obstructive sleep apnea (adult) (pediatric) (principal); E66.9 Obesity, unspecified; J30.89 Other allergic rhinitis; R03.0 Elevated blood-pressure reading, without diagnosis of hypertension; Z90.721 Acquired absence of ovaries, unilateral; Z99.89 Dependence on other enabling machines and devices; Z87.39 Personal history of other diseases of the musculoskeletal system and connective tissue

== ENCOUNTER → 2020-02-16 | Outpatient (CLI) | payer BC ==
--- NOTE | 2020-02-16 14:41 | MM ---
Reason for exam: additional evaluation requested from prior study. Last mammogram was performed 6 months ago. History: Patient is postmenopausal. Family history of breast cancer in sister at age 54. Took estrogen for 1 year beginning at age 48. Physical Findings: Nurse did not find any significant physical abnormalities on exam. MG 3D Diag Mammo W/Cad KARIS Bilateral CC and MLO view(s) were taken. Prior study comparison: August 09, 2019, left breast MG work up mamm w CAD LT. January 31, 2019, bilateral MG screening mammo w CAD. The breast tissue is heterogeneously dense. This may lower the sensitivity of mammography. No significant new findings when compared with previous films. These results were verbally communicated with the patient and result sheet given to the patient on 02/16/20. ASSESSMENT: Benign, BI-RAD 2 RECOMMENDATION: Routine screening mammogram of both breasts in 1 year.
== END | disposition home or self-care (01) ==
LOC: RADMAMWWP 12:58
PROVIDERS: ATTEND Obstetrics & Gynecology Obstetrics
DX: R92.8 Other abnormal and inconclusive findings on diagnostic imaging of breast (principal)
CPT/HCPCS: 77062; 77066

== ENCOUNTER → 2020-12-20 | Outpatient (CLI) | payer BC ==
--- NOTE | 2020-12-20 14:51 | SFUN ---
SLEEP CENTER FOLLOW UP NOTE DATE OF SERVICE: 12/20/2020 65-year-old lady has been followed in Sleep Center for treatment of obstructive sleep apnea-hypopnea syndrome. The patient continues to use her CPAP equipment every night for the whole night. Presently does not complain of any significant problems related to the pressure or mask which she had before. [place] Sleepiness Scale today is 2 which is absolutely normal. I checked her CPAP unit. Range of the pressure between 4 and 8.4. Usage is 30/30 nights and 29/30 nights for more than 4 hours, average 8 hours per night. Leak is 24 L/minutes, which is borderline. Apnea-hypopnea index increased to 10. MEDICATIONS: Simvastatin 10 mg once a day, gabapentin 600 mg once at bedtime, Elavil 10 mg once at bedtime, Zyrtec 10 mg once a day, Flonase nasal spray twice a day. PHYSICAL EXAMINATION: GENERAL: Patient in no distress. BP 153/84, HR 78, RR 15, height 5 feet 4-3/4 inches, weight 195 pounds, body mass index 32.7, temperature 97.5, oxygen saturation at room air 94%. Oropharynx: Low position of soft palate, Mallampati 3. NECK: Supple, no JVD. Thyroid is not palpable. LUNGS: Clear to percussion and to auscultation. Good air exchange. No wheezing or rhonchi. HEART: S1, S2 regular. No murmurs, gallops, or rubs. ABDOMEN: Slightly obese. Soft and nontender. Bowel sounds are present. No organomegaly appreciated. EXTREMITIES: No clubbing or cyanosis. BICYCLE DESIGNER: Awake, alert, and oriented X3. Cranial nerves 2 to 7 intact. There is no fasciculation or atrophy. noted. No focal deficits observed. IMPRESSION: 1. Obstructive sleep apnea-hypopnea syndrome. Patient demonstrated great compliance with treatment benefitting from treatment. Apnea-hypopnea index increased to 10. 2. Mild obesity, body mass index 32.7. Patient increased weight on 4 pounds since the previous visit. 3. History of sinusitis. 4. Allergies. 5. History of TMJ problems. 6. Status post oophorectomy. 7. Increased blood pressure in the office. PLAN: 1. I changed the pressure in the machine to the maximum pressure 9.4. The machine continued to work in automatic regimen. 2. Monitoring blood pressure. 3. Patient will continue to use PAP equipment every night for the whole night. 4. Sleep hygiene with regular time in bed for at least 7-1/2 to 8 hours. 5. Precautions related to driving. No driving if feeling sleepiness. 6. I will maintain all necessary prescription for PAP supplies including mask, tube, filters. 7. Watching weight. 8. Follow-up visit in 6 months or earlier if patient has any problems. Thank you very much for allowing me to participate in management of your patient. Sincerely, Horacio Bello MD, PhD, FAASM Diplomat of [employer] Board of Medical Specialties Sleep Medicine Board of [employer] Board of Internal Medicine Photographic Process Attendant of [facility] [place] MMАЛЕКСАНДРL / DANNYN: [id number] /
== END ==
LOC: SLEEP 12:50
PROVIDERS: ATTEND Internal Medicine
DX: G47.33 Obstructive sleep apnea (adult) (pediatric) (principal); E66.9 Obesity, unspecified; T78.40XA Allergy, unspecified, initial encounter; I10 Essential (primary) hypertension; Z99.89 Dependence on other enabling machines and devices; Z87.39 Personal history of other diseases of the musculoskeletal system and connective tissue; Z68.32 Body mass index [BMI] 32.0-32.9, adult; Z90.722 Acquired absence of ovaries, bilateral; Z88.1 Allergy status to other antibiotic agents; Z88.5 Allergy status to narcotic agent; Z91.048 Other nonmedicinal substance allergy status

== ENCOUNTER → 2021-03-07 | Outpatient (CLI) | payer BC, MEDICARE ==
--- NOTE | 2021-03-11 09:12 | MM ---
Reason for exam: screening (asymptomatic). Last mammogram was performed 1 year and 1 month ago. History: Patient is postmenopausal. Family history of breast cancer in sister at age 54. Took estrogen for 1 year beginning at age 48. Physical Findings: A clinical breast exam by your physician is recommended on an annual basis and results should be correlated with mammographic findings. MG 3D Screening Mammo W/Cad Bilateral CC and MLO view(s) were taken. Prior study comparison: February 16, 2020, bilateral MG 3d diag mammo w/cad KARIS. August 09, 2019, left breast MG work up mamm w CAD LT. The breast tissue is heterogeneously dense. This may lower the sensitivity of mammography. No significant changes when compared with prior studies. ASSESSMENT: Negative, BI-RAD 1 RECOMMENDATION: Routine screening mammogram of both breasts in 1 year. Patient should continue monthly self breast exams. A negative report should not preclude additional follow up of suspicious palpable abnormalities.
== END | disposition home or self-care (01) ==
LOC: RADMAMWWP 10:17
PROVIDERS: ATTEND Obstetrics & Gynecology Obstetrics
DX: Z12.31 Encounter for screening mammogram for malignant neoplasm of breast (principal); Z78.0 Asymptomatic menopausal state; Z80.3 Family history of malignant neoplasm of breast
CPT/HCPCS: 77063; 77067

== ENCOUNTER → 2021-05-29 | Outpatient (CLI) | payer MEDICARE ==
--- NOTE | 2021-05-29 16:18 | XR ---
EXAMINATION TYPE: XR chest 2V DATE OF EXAM: 05/29/2021 COMPARISON: Chest x-ray 07/13/2011 HISTORY: U07.1 COVID-19 TECHNIQUE: Frontal and lateral views of the chest are obtained. FINDINGS: There is no focal air space opacity, pleural effusion, or pneumothorax seen. The cardiac silhouette size is within normal limits. The osseous structures are intact, slight spinal curvature is noted. IMPRESSION: No acute cardiopulmonary process.
== END | disposition home or self-care (01) ==
LOC: RADXRMAIN 15:28
PROVIDERS: ATTEND Internal Medicine Geriatric Medicine
DX: U07.1 COVID-19 (principal)
CPT/HCPCS: 71046

== ENCOUNTER → 2021-06-20 | Outpatient (CLI) | payer MEDICARE ==
--- NOTE | 2021-06-20 15:39 | SFUN ---
SLEEP CENTER FOLLOW UP NOTE DATE OF SERVICE: 06/20/2021 This 66-year-old lady has been followed in Sleep Center for treatment of obstructive sleep apnea-hypopnea syndrome. The patient continues to use her CPAP equipment every night for the whole night. Sometimes she feels some discomfort in her nose, but it is much less than before. [place] Sleepiness Scale is 2. I checked her CPAP unit. It is in automatic regimen. Range of the pressure is 4 to 9.4, average pressure 9.3. Usage is 30/30 nights and /30 nights for more than 4 hours, average 6.8 hours per night. Leak is 6 L/minute, which is in normal range. Apnea- hypopnea index increased to 9.5, but this is slightly less than during the previous visit, when it was 10. MEDICATIONS: 1. Simvastatin 20 mg once a day. 2. Amitriptyline 10 mg once a day. 3. Gabapentin 600 mg once a day. 4. Zyrtec once a day. 5. Flonase 2 times a day. PHYSICAL EXAMINATION: GENERAL: Pleasant patient in no distress. VITAL SIGNS: BP 152/91, HR 93, RR 16, weight 196.2, height 5 feet and 4-3/4 inches, temperature 97.1, oxygen saturation at room air 95%. HEENT: PERRLA, EOMI, evaluation of oropharynx showed tongue protrudes midline. Low position of soft palate; Mallampati III. NECK: Supple, no JVD. Thyroid is not palpable. LUNGS: Clear to percussion and to auscultation. Good air exchange. No wheezing or rhonchi. HEART: S1, S2 regular. No murmurs, gallops, or rubs. ABDOMEN: Slightly obese. EXTREMITIES: No clubbing or cyanosis. FOREST FIRE CONTROL OFFICER: Awake, alert, and oriented X3. Cranial nerves 2 to 7 intact. There is no fasciculation or atrophy. noted. No focal deficits observed. IMPRESSION: 1. Obstructive sleep apnea-hypopnea syndrome. Patient demonstrated great compliance with treatment, benefitting from treatment. Reading of apnea-hypopnea index slightly increased. 2. Mild obesity. 3. History of sinusitis. 4. Allergies. 5. History of TMJ problems. 6. Status post oophorectomy. 7. Increased blood pressure in the office. 8. Hyperlipidemia. PLAN: 1. I changed the maximal pressure in the machine up to 10 cm of water. The machine will continue to work in automatic regimen, range of the pressure 4 to 10 cm of water. 2. Patient will continue to use PAP equipment every night for the whole night. 3. Sleep hygiene with regular time in bed for at least 7-1/2 to 8 hours. 4. Precautions related to driving. No driving if feeling sleepiness. 5. I will maintain all necessary prescription for PAP supplies including mask, tube, filters. 6. Watching weight. 7. Follow-up visit in 6 months or earlier if patient has any problems. Thank you very much for allowing me to participate in the management of your patient. Sincerely, Horacio Bello MD, PhD, FAASM Diplomat of [place] [employer] Specialties Sleep Medicine Board of [place] Board of Internal Medicine Engineering Professionals of [facility] [place] DOUG / LORENA: [id number] /
== END ==
LOC: SLEEP 13:08
PROVIDERS: ATTEND Internal Medicine
DX: G47.33 Obstructive sleep apnea (adult) (pediatric) (principal); E66.9 Obesity, unspecified; T78.40XA Allergy, unspecified, initial encounter; E78.5 Hyperlipidemia, unspecified; R03.0 Elevated blood-pressure reading, without diagnosis of hypertension; Z99.89 Dependence on other enabling machines and devices; Z87.09 Personal history of other diseases of the respiratory system; Z87.39 Personal history of other diseases of the musculoskeletal system and connective tissue; Z90.722 Acquired absence of ovaries, bilateral

== ENCOUNTER → 2022-01-03 | Outpatient (CLI) | payer MEDICARE ==
--- NOTE | 2022-01-03 13:15 | XR ---
EXAMINATION TYPE: XR cervical spine comp DATE OF EXAM: 01/03/2022 1:06 PM INDICATION: Patient age:Female; 66 years old; Reason for study: M54.2 cervicalgia; COMPARISON: None TECHNIQUE: The cervical spine was imaged in frontal, lateral, odontoid and bilateral oblique. FINDINGS: The osseous structures show normal alignment without evidence of an acute fracture. There are osteoph ytes noted throughout the cervical spine on the anterior and lateral aspects of the vertebral bodies. The intervertebral disk spaces are preserved. Pedicles are intact. Soft tissues are within normal limits. The odontoid appears intact. Scattered neural foraminal narrowing is appreciated bilaterally, worst at C5-C6. IMPRESSION: 1. No fracture or dislocation. 2. Mild degenerative disc disease changes of the cervical spine.
== END | disposition home or self-care (01) ==
LOC: RADXRMAIN 12:50
PROVIDERS: ATTEND Nurse Practitioner Family
DX: M50.322 Other cervical disc degeneration at C5-C6 level (principal)
CPT/HCPCS: 72050

== ENCOUNTER → 2022-01-08 | Outpatient (CLI) | payer MEDICARE ==
--- NOTE | 2022-01-08 14:01 | P.PN ---
Subjective DATE: 01/08/2022 FOLLOW UP VISIT. Patient with obstructive sleep apnea hypopnea syndrome return to sleep center for follow-up visit. Information from previous visit have been reviewed. Patient is using PAP equipment every night for the whole night, getting PAP supplies in time. The patient does not have significant problems with the mask, PAP unit and humidification. [place] sleepiness scale is 2, which is normal. I checked information from PAP unit. PAP unit pressure 4-10, average 9.9 cm H2O. Usage is 100 % for more then 4 hours, average 7 hours per night. Leak is 19 l/m, which is in acceptable range. Apnea Hypopnea Index is 6.2, which is slightly above normal, improved comparing to the previous visit when it was 9.5. During previous visit a slightly increased pressure in his CPAP unit for maximal 9.4 to 10 cm of water. MEDICATIONS:1. Gabapentin 600 mg once a day 2. Elavil 10 mg once a day 3. Simvastatin 20 mg once a day 4. Meclizine up to 2 a day as needed 5. Zyrtec During physical exam: GENERAL: A pleasant patient without any distress. VITAL SIGNS: BP 152/82, HR 81, RR 14 , weight 198.0, temperature 97.2, oxygen saturation at room air 98 % . HEENT: PERRLA, EOMI.low position of soft palate, Mallapati 3 . NECK: Supple. No JVD. LUNGS: Clear to percussion and to auscultation. Good air exchange. No wheezing or rhonchi. HEART: S1, S2 regular. ABDOMEN: Soft and nontender. Slightly obese EXTREMITIES: No clubbing or cyanosis. HUMAN RESOURCES TRAINEE: Awake, alert, and oriented x3. No focal deficit. Impressions: 1. Obstructive sleep apnea-hypopnea syndrome. Patient demonstrated great compliance with treatment, benefiting from treatment. 2. History of sinusitis. 3. Mild obesity. 4. ALLERGIES. 5. History of TMJ problems. 6. Status post oophorectomy. 7. Again increased blood pressure in the office. 8. Hyperlipidemia. Plan: 1. Continue using PAP equipment every night for the whole night. I changed maximal pressure in CPAP unit up to 10.4 cm of water. 2. To change air filter at least 1-2 times per month. 3. PAP unit should stay lower then position of the head. 4. Advised patient to remove all remaining water from humidifier canister daily and make it dry after each usage. Refill canister with fresh distilled water before each usage. 5. Sleep hygiene with regular time in bed for at least 8 hours. 6. Precautions related to driving. No driving if feel any sleepiness. 7. I will maintain prescription for PAP supplies including mask, tube, filters. 8. Follow up visit in 6 months or earlier if patient has any problems. 9. Watching weight. 10. Monitoring blood pressure. Low sodium diet. Thank you very much for allowing me to participate in the management of your patient. Horacio Bello MD, PhD, FAASM. Diplomat of [place] [employer], Sleep Medicine Board by [place] [employer] Reporting Developer of [facility] [place]
== END ==
LOC: SLEEP 13:09
PROVIDERS: ATTEND Internal Medicine
DX: G47.33 Obstructive sleep apnea (adult) (pediatric) (principal); Z99.89 Dependence on other enabling machines and devices; E78.5 Hyperlipidemia, unspecified; E66.8 Other obesity; Z87.09 Personal history of other diseases of the respiratory system; R03.0 Elevated blood-pressure reading, without diagnosis of hypertension; Z90.722 Acquired absence of ovaries, bilateral; Z87.39 Personal history of other diseases of the musculoskeletal system and connective tissue; Z88.1 Allergy status to other antibiotic agents; Z88.8 Allergy status to other drugs, medicaments and biological substances; Z91.018 Allergy to other foods; Z91.09 Other allergy status, other than to drugs and biological substances
CPT/HCPCS: 99212

== ENCOUNTER → 2022-01-21 | Outpatient (CLI) | payer MEDICARE ==
--- NOTE | 2022-01-21 08:44 | CT ---
EXAMINATION TYPE: CT iac wo con DATE OF EXAM: 01/21/2022 COMPARISON: NONE HISTORY: Dizziness and giddiness. CT DLP: 150 mGycm. Automated Exposure Control for Dose Reduction was Utilized. TECHNIQUE: CT scan of internal auditory canal is performed without contrast, thin cut axial images ar e obtained, coronal reformatted images are also reviewed. FINDINGS: The external auditory canals are patent bilaterally. Mastoid air cells show no evidence of abnormal opacification bilaterally. The middle ear ossicles are symmetric and unremarkable. There is no evidence of suspicious surroundi ng soft tissue density to suggest cholesteatoma. The scutum is preserved bilaterally. The cochlea and the semicircular canals are symmetric and unremarkable. Satisfactory bony over coveri ng of the superior semicircular canal is noted. Vestibular aqueduct and internal carotid canal appea r unremarkable. Temporomandibular joints are maintained bilaterally. Visualized paranasal sinuses are grossly clear. Visualized portion brain parenchyma is felt within normal limits. IMPRESSION: No significant abnormality seen to account for patient's symptoms of dizziness.
== END | disposition home or self-care (01) ==
LOC: RADCTMAIN 06:59
PROVIDERS: ATTEND Otolaryngology
DX: R42 Dizziness and giddiness (principal)
CPT/HCPCS: 70480

== ENCOUNTER → 2022-07-26 | Outpatient (CLI) | payer MEDICARE ==
[2022-07-26 23:03] LABS: Basophils # (A) 0.07 X 10*3/uL (0.00-0.10); Basophils % (A) 0.8 %; Eosinophils # (A) 0.23 X 10*3/uL (0.04-0.35); Eosinophils % (A) 2.6 %; HCT 40.2 % (37.2-46.3); HGB 12.5 d/dL (12.0-15.0); Lymphocytes # (A) 3.03 X 10*3/uL (0.90-5.00); Lymphocytes % (A) 33.8 %; MCH 28.7 pg (27.0-32.0); MCHC 31.1 d/dL (32.0-37.0); MCV 92.4 FL (80.0-97.0); Monocytes # (A) 0.95 X 10*3/uL (0.20-1.00); Monocytes % (A) 10.6 %; NRBC Per 100 WBC 0 X 10*3/uL (0.00-0.01); Neutrophils # (A) 4.67 X 10*3/uL (1.80-7.70); Platelet Count 444 X 10*3/uL (140-440); RBC 4.35 X 10*6/uL (4.10-5.20); RDW 13.2 % (11.5-14.5); WBC 8.97 X 10*3/uL (4.50-10.00)
[2022-07-27 09:44] LABS: ALT 20 U/L (8-44); AST 23 U/L (13-35); Albumin 4.4 d/dL (3.8-4.9); Alkaline Phosphatase 57 U/L (41-126); BUN/Creat Ratio 22.17 Ratio (12.00-20.00); Blood Urea Nitrogen 13.3 mg/dL (9.0-27.0); Calcium 9.5 mg/dL (8.7-10.3); Chloride 102 mmol/L (96-109); Chol/HDL Ratio 2.67 Ratio; Globulin 2.2 d/dL (1.6-3.3); Glucose 83 mg/dL (70-110); LDL Cholesterol,Calculated 87.3 mg/dL (0.0-131.0); Sodium 141 mmol/L (135-145); T4, Free (Free Thyroxine) 1.13 ng/dL (0.80-1.80); Total Bilirubin 0.4 mg/dL (0.3-1.2); Total Protein 6.6 d/dL (6.2-8.2); Uric Acid 5.2 mg/dL (2.9-7.7); VLDL Calculation 18.38 mg/dL (5.00-40.00)
== END | disposition home or self-care (01) ==
LOC: LABWHC1 10:37
PROVIDERS: ATTEND Internal Medicine Geriatric Medicine
DX: G47.33 Obstructive sleep apnea (adult) (pediatric) (principal); E78.2 Mixed hyperlipidemia; E07.9 Disorder of thyroid, unspecified; M79.641 Pain in right hand; R73.9 Hyperglycemia, unspecified
CPT/HCPCS: 36415; 80053; 80061; 83036; 84439; 84443; 84550; 85025

== ENCOUNTER → 2022-10-02 | Outpatient (CLI) | payer MEDICARE ==
--- NOTE | 2022-10-02 15:01 | P.PN ---
Subjective DATE: 10/02/2022 FOLLOW UP VISIT. Patient with obstructive sleep apnea hypopnea syndrome return to sleep center for follow-up visit. Information from previous visit have been reviewed. Patient is using PAP equipment every night for the whole night, getting PAP supplies in time. The patient does not have significant problems with the mask, PAP unit and humidification. [place] sleepiness scale is 2, which is normal. I checked information from PAP unit. PAP unit pressure 4-10.4, average 10.3 cm H2O. Usage is 100 % for more then 4 hours, average 7 hours per night. Leak is 24 l/m, which is in acceptable range. Apnea Hypopnea Index is 0.6, which is normal. MEDICATIONS:1. Gabapentin 600 mg once a day 2. Simvastatin 20 mg once a day 3. Elavill 20 mg once a day 4. Zyrtec 10 mg once a day During physical exam: GENERAL: A pleasant patient without any distress. VITAL SIGNS: BP 149/76, HR 73, RR 12 , weight 196.6, temperature 97.3, oxygen saturation at room air 98 % . HEENT: PERRLA, EOMI.low position of soft palate, Mallapati 3 . NECK: Supple. No JVD. LUNGS: Clear to percussion and to auscultation. Good air exchange. No wheezing or rhonchi. HEART: S1, S2 regular. ABDOMEN: Soft and nontender.[] EXTREMITIES: No clubbing or cyanosis. NITROGEN OPERATOR: Awake, alert, and oriented x3. No focal deficit. Impressions: 1. Obstructive sleep apnea-hypopnea syndrome. Patient demonstrated great compliance with treatment, benefiting from treatment. 2. Mild obesity, patient lost 2 pounds comparing to the previous visit. 3. History of sinuses problems. 4. History of TMJ problems. 5. Status post oophorectomy. 6. Increased blood pressure in the office. 7. Hyperlipidemia. Plan: 1. Continue using PAP equipment every night for the whole night. 2. To change air filter at least 1-2 times per month. 3. PAP unit should stay lower then position of the head. 4. Advised patient to remove all remaining water from humidifier canister daily and make it dry after each usage. Refill canister with fresh distilled water before each usage. 5. Sleep hygiene with regular time in bed for at least 8 hours. 6. Precautions related to driving. No driving if feel any sleepiness. 7. I will maintain prescription for PAP supplies including mask, tube, filters. 8. Follow up visit in 6 months or earlier if patient has any problems. 9. Watching and losing weight. 10. Low sodium diet, monitoring blood pressure. Thank you very much for allowing me to participate in the management of your patient. Horacio Bello MD, PhD, FAASM. Diplomat of [place] [employer] Medicine, Sleep Medicine Board by [place] [employer] Automotive Brake Adjuster of [facility] [place]
== END ==
LOC: 3 N SLEEP 13:48
PROVIDERS: ATTEND Internal Medicine
DX: G47.33 Obstructive sleep apnea (adult) (pediatric) (principal); E66.9 Obesity, unspecified; E78.5 Hyperlipidemia, unspecified; R03.0 Elevated blood-pressure reading, without diagnosis of hypertension; Z98.890 Other specified postprocedural states; Z99.89 Dependence on other enabling machines and devices; Z87.39 Personal history of other diseases of the musculoskeletal system and connective tissue; Z79.899 Other long term (current) drug therapy; Z91.048 Other nonmedicinal substance allergy status; Z88.1 Allergy status to other antibiotic agents; Z88.8 Allergy status to other drugs, medicaments and biological substances; Z88.5 Allergy status to narcotic agent
CPT/HCPCS: 99212

== ENCOUNTER → 2023-01-16 | Outpatient (CLI) | payer MEDICARE ==
--- NOTE | 2023-01-17 14:13 | US ---
EXAMINATION TYPE: US pelvis complete transvag DATE OF EXAM: 01/16/2023 COMPARISON: NONE CLINICAL INDICATION: Female, 67 years old with history of R10.2 PELVIC AND PERINEAL PAIN; Hx Left Oop horectomy and cyst removal TECHNIQUE: Transabdominal sonographic images of the pelvis were acquired. Transvaginal sonographic i mages were medically necessary to better assess the following anatomy: Ovaries Date of LMP: 20 years ago EXAM MEASUREMENTS: Uterus: 6.7 x 4.0 x 4.1 cm Endometrial Stripe: 0.4 cm Right Ovary: 2.1 x 1.4 x 1.4 cm Left Ovary: Surgically absent 1. Uterus: Anteverted and otherwise wnl. Questionable round 8 mm area centered within the cervix. T his appearance may be artifactual from areas of shadowing. 2. Endometrium: wnl 3. Right Ovary: wnl 4. Left Ovary: Surgically absent 5. Bilateral Adnexa: wnl 6. Posterior cul-de-sac: wnl IMPRESSION: 1. Questionable 8 mm rounded soft tissue area centered within the cervix. Consider direct inspection/ Pap smear evaluation. 2. Status post left oophorectomy. No other specific abnormality seen.
== END | disposition home or self-care (01) ==
LOC: RADUSWWP 16:02
PROVIDERS: ATTEND Internal Medicine Geriatric Medicine
DX: R10.2 Pelvic and perineal pain (principal); Z90.721 Acquired absence of ovaries, unilateral
CPT/HCPCS: 76830; 76856

== ENCOUNTER → 2023-04-17 | Outpatient (CLI) | payer MEDICARE ==
--- NOTE | 2023-04-17 10:43 | MM ---
Reason for Exam: Additional evaluation requested from abnormal screening. Last screening mammogram was performed less than 1 month ago. Patient History: Menarche at age 13. First Full-Term at age 29. Left ovary removed at age 61. Postmenopausal. Estrogen for 1 year from age 48 until age 49. Sister had breast cancer, age 54. Risk Values: Kandy 5 year model risk: 3.3%. NCI Lifetime model risk: 11.5%. Prior Study Comparison: 04/07/2022 Bilateral MG 3D screening mammo w/cad, [facility]. 04/13/2023 Bilateral MG 3D screening mammo w/cad, [facility]. Tissue Density: The breasts are heterogeneously dense, which may obscure small masses. Findings: Analyzed By CAD. Left breast: No persistent abnormality on spot compression mammography. Six-month follow-up recommended. Right breast: Well-circumscribed nodule upper half of the right breast 2.5 cm from the nipple measuring 8 mm. Ultrasound is advised. Overall Assessment: Incomplete: need additional imaging evaluation, BI-RAD 0 Management: Diagnostic Breast Ultrasound of the right breast. . Results were given to the patient verbally at the time of exam. Patient should continue monthly self-breast exams. A clinical breast exam by your physician is recommended on an annual basis. This exam should not preclude additional follow-up of suspicious palpable abnormalities. Note on Kandy scores and lifetime risk: 1. A Kandy score greater than 3% is considered moderate risk. If this is the case, consider specialist referral to assess eligibility for a risk reducing agent. 2. If overall lifetime risk for the development of breast cancer is 20% or higher, the patient may qualify for future screening with alternating mammogram and breast MRI. Electronically signed and approved by: Villa Hoang M.D. Radiologis
--- NOTE | 2023-04-17 11:22 | USB ---
Reason for Exam: Additional evaluation requested from abnormal screening. Patient History: Menarche at age 13. First Full-Term at age 29. Left ovary removed at age 61. Postmenopausal. Estrogen for 1 year from age 48 until age 49. Sister had breast cancer, age 54. Risk Values: Kandy 5 year model risk: 3.3%. NCI Lifetime model risk: 11.5%. Technique: Method: Targeted. Prior Study Comparison: 03/07/2021 Bilateral Screening Mammogram, [facility]. 04/07/2022 Bilateral MG 3D screening mammo w/cad, [facility]. 04/13/2023 Bilateral MG 3D screening mammo w/cad, [facility]. Findings: The upper inner quadrant of the right breast, the axilla of the right breast and the retroareolar of the right breast were scanned. Simple cyst noted at the right 12:00 position 3 cm from the nipple measuring 7 x 5 mm correlating with mammographic abnormality. Six-month follow-up mammography recommended for the left breast as noted on the mammography report.. Overall Assessment: Probably benign, BI-RAD 3 Management: Diagnostic Mammogram of the left breast in 6 months. A clinical breast exam by your physician is recommended on an annual basis and results should be correlated with mammographic findings. This exam should not preclude additional follow-up of suspicious palpable abnormalities. Results were given to the patient verbally at the time of exam. Electronically signed and approved by: Villa Hoang M.D. Radiologis
== END | disposition home or self-care (01) ==
LOC: RADMAMWWP 10:13
PROVIDERS: ATTEND Internal Medicine Geriatric Medicine
DX: Z78.0 Asymptomatic menopausal state (principal); Z80.3 Family history of malignant neoplasm of breast; R92.333 Mammographic heterogeneous density, bilateral breasts
CPT/HCPCS: 77066; 76642; G0279; 77062

== ENCOUNTER → 2023-04-23 | Outpatient (CLI) | payer MEDICARE ==
[2023-04-23 11:44] VITALS: BP 150/90; PULSE 95; RESP 12; TEMP 99.4
--- NOTE | 2023-04-23 12:12 | P.PN ---
Subjective DATE: 04/23/2023 FOLLOW UP VISIT. Patient with obstructive sleep apnea hypopnea syndrome return to sleep center for follow-up visit. Information from previous visit have been reviewed. Patient is using PAP equipment every night for the whole night, getting PAP supplies in time. The patient does not have significant problems with the mask, PAP unit and humidification. [place] sleepiness scale is 2. I checked information from PAP unit. PAP unit pressure 4-10.4, average 10.3 cm H2O. Usage is 100% for more then 4 hours, average 7.8 hours per night. Leak is 35 l/m, which is in acceptable range. Apnea Hypopnea Index is 5.6, which is minimally increased. MEDICATIONS:1. Zyrtec 10 mg once a day 2. Flonase 3. Gabapentin 600 mg once a day 4. Elavil 25 mg once a day 5. Simvastatin 20 mg once a day 6. Rizatriptan as needed During physical exam: GENERAL: A pleasant patient without any distress. VITAL SIGNS: Please see below. HEENT: PERRLA, EOMI.low position of soft palate, Mallapati 3 . NECK: Supple. No JVD. LUNGS: Clear to percussion and to auscultation. Good air exchange. No wheezing or rhonchi. HEART: S1, S2 regular. ABDOMEN: Soft and nontender.[] EXTREMITIES: No clubbing or cyanosis. CLIENT ENGAGEMENT MANAGER: Awake, alert, and oriented x3. No focal deficit. Impressions: 1. Obstructive sleep apnea-hypopnea syndrome. Patient demonstrated great compliance with treatment, benefiting from treatment. 2. Mild obesity BMI 32.6, patient lost 5 pounds comparing with the previous visit 3. History of sinusitis. 4. Hyperlipidemia. 5. History of TMJ problems. 6. Blood pressure again increased in the office. 7. Status post oophorectomy. Plan: 1. Continue using PAP equipment every night for the whole night. I increased maximal level of pressure to 10.8 cm of water. 2. To change air filter at least 1-2 times per month. 3. PAP unit should stay lower then position of the head. 4. Advised patient to remove all remaining water from humidifier canister daily and make it dry after each usage. Refill canister with fresh distilled water before each usage. 5. Sleep hygiene with regular time in bed for at least 8 hours. 6. Precautions related to driving. No driving if feel any sleepiness. 7. I will maintain prescription for PAP supplies including mask, tube, filters. 8. Follow up visit in 6 months or earlier if patient has any problems. 9. Watching and continue losing weight. 10. Monitoring blood pressure. Thank you very much for allowing me to participate in the management of your patient. Horacio Bello MD, PhD, FAASM. Diplomat of [place] Board [employer] Sleep Medicine, Sleep Medicine Board by [place] [employer] Medicine Securities Underwriter of [facility] [place] Objective - Vital Signs Vital signs: Vital Signs Temp 99.4 F 04/23/23 11:36 Pulse 95 04/23/23 11:36 Resp 12 04/23/23 11:36 BP 150/90 04/23/23 11:36 Pulse Ox 97 04/23/23 11:36 FiO2 Intake & Output 04/22/23 04/23/23 04/23/23 18:59 06:59 18:59 Weight 87.543 kg
== END ==
LOC: 3 N SLEEP 11:11
PROVIDERS: ATTEND Internal Medicine
DX: G47.33 Obstructive sleep apnea (adult) (pediatric) (principal); E66.9 Obesity, unspecified; E78.5 Hyperlipidemia, unspecified; R03.0 Elevated blood-pressure reading, without diagnosis of hypertension; Z68.32 Body mass index [BMI] 32.0-32.9, adult; Z98.890 Other specified postprocedural states; Z90.721 Acquired absence of ovaries, unilateral; Z87.39 Personal history of other diseases of the musculoskeletal system and connective tissue; Z79.899 Other long term (current) drug therapy; Z87.09 Personal history of other diseases of the respiratory system; Z99.89 Dependence on other enabling machines and devices; Z91.09 Other allergy status, other than to drugs and biological substances; Z88.1 Allergy status to other antibiotic agents; Z88.8 Allergy status to other drugs, medicaments and biological substances
CPT/HCPCS: 99212

== ENCOUNTER → 2023-06-03 | Outpatient (CLI) | payer MEDICARE ==
[2023-06-03 11:44] VITALS: BP 143/87; PULSE 94; RESP 18; TEMP 99.3
--- NOTE | 2023-06-03 12:08 | P.PN ---
Subjective DATE: 06/03/2023 FOLLOW UP VISIT. Patient with obstructive sleep apnea hypopnea syndrome return to sleep center for follow-up visit. Information from previous visit have been reviewed. Patient is using PAP equipment every night for the whole night, getting PAP supplies in time. The patient does not have significant problems with the mask, PAP unit and humidification. [place] sleepiness scale is 4. I checked information from PAP unit. PAP unit pressure 4-10.8, average 10.6 cm H2O. Usage is 100% for more then 4 hours, average 7.6 hours per night. Leak is 31 l/m, which is in acceptable range. Apnea Hypopnea Index is 4.8, which is borderline. Motor life expectancy was exceeded on the machine, sometimes CPAP unit is noisy. MEDICATIONS:1. Zyrtec 10 mg once a day 2. Flonase 3. Simvastatin 20 mg once a day 4. Gabapentin 600 mg once a day 5. Elavil 25 mg once a day 6. Estradiol 7. Rizatriptan as needed During physical exam: GENERAL: A pleasant patient without any distress. VITAL SIGNS: Please see below, weight 192.8 pounds. HEENT: PERRLA, EOMI.low position of soft palate, Mallapati 3 . NECK: Supple. No JVD. LUNGS: Clear to percussion and to auscultation. Good air exchange. No wheezing or rhonchi. HEART: S1, S2 regular. ABDOMEN: Soft and nontender.[] EXTREMITIES: No clubbing or cyanosis. CUT PLUG PACKER: Awake, alert, and oriented x3. No focal deficit. Impressions: 1. Obstructive sleep apnea-hypopnea syndrome. Patient demonstrated great compliance with treatment, benefiting from treatment. Motor life expectancy was exceeded on the machine, sometimes CPAP unit is noisy 2. Hyperlipidemia. 3. History of allergy. 4. History of sinusitis. 5. History of TMJ problems. 6. Slight increase in blood pressure in the office. 7. Status post oophorectomy. I slightly increased pressure on the machine to the range 4 to 11.6 cm of water. Plan: 1. Continue using PAP equipment every night for the whole night. Prescription to replace CPAP unit. 2. To change air filter at least 1-2 times per month. 3. PAP unit should stay lower then position of the head. 4. Advised patient to remove all remaining water from humidifier canister daily and make it dry after each usage. Refill canister with fresh distilled water before each usage. 5. Sleep hygiene with regular time in bed for at least 8 hours. 6. Precautions related to driving. No driving if feel any sleepiness. 7. I will maintain prescription for PAP supplies including mask, tube, filters. 8. Watching weight. 9. Follow up visit in 1-3 months or earlier if patient has any problems. Thank you very much for allowing me to participate in the management of your patient. Horacio Bello MD, PhD, FAASM. Diplomat of [place] Board of Sleep Medicine, Sleep Medicine Board by [place] Board [employer] Internal Medicine Retort Fireman of [facility] [place] Objective - Vital Signs Vital signs: Vital Signs Temp 99.3 F 06/03/23 11:40 Pulse 94 06/03/23 11:40 Resp 18 06/03/23 11:40 BP 143/87 06/03/23 11:40 Pulse Ox 94 L 06/03/23 11:40 FiO2 Intake & Output 06/02/23 06/03/23 06/03/23 18:59 06:59 18:59 Weight 87.317 kg
== END ==
LOC: 3 N SLEEP 11:17
PROVIDERS: ATTEND Internal Medicine
DX: G47.33 Obstructive sleep apnea (adult) (pediatric) (principal); E78.5 Hyperlipidemia, unspecified; R03.0 Elevated blood-pressure reading, without diagnosis of hypertension; Z98.890 Other specified postprocedural states; Z90.721 Acquired absence of ovaries, unilateral; Z87.39 Personal history of other diseases of the musculoskeletal system and connective tissue; Z87.09 Personal history of other diseases of the respiratory system; Z91.09 Other allergy status, other than to drugs and biological substances; Z99.89 Dependence on other enabling machines and devices; Z88.1 Allergy status to other antibiotic agents; Z88.8 Allergy status to other drugs, medicaments and biological substances; Z88.6 Allergy status to analgesic agent
CPT/HCPCS: 99212

== ENCOUNTER → 2023-08-27 | Outpatient (CLI) | payer MEDICARE ==
--- NOTE | 2023-08-27 11:51 | P.PROGSL ---
Subjective DATE: 08/27/2023 FOLLOW UP VISIT. Patient with obstructive sleep apnea hypopnea syndrome return to sleep center for follow-up visit. Information from previous visit have been reviewed. This is first visit after patient received new CPAP unit. Patient is using PAP equipment every night for the whole night, getting PAP supplies in time. The patient does not have significant problems with the mask, PAP unit and humidification. [place] sleepiness scale is 2, which is normal. I checked information from PAP unit. PAP unit pressure or to 11.6, average 11.4 cm H2O. Usage is 100% for more then 4 hours, average 8 hours per night. Leak is 8.4 l/m, which is in acceptable range. Apnea Hypopnea Index is slightly increased 6.3. MEDICATIONS have been reviewed, please see below. During physical exam: GENERAL: A pleasant patient without any distress. VITAL SIGNS: Please see below, weight is 197.6 lbs. HEENT: PERRLA, EOMI.low position of soft palate, Mallapati 3 . NECK: Supple. No JVD. LUNGS: Clear to percussion and to auscultation. Good air exchange. No wheezing or rhonchi. HEART: S1, S2 regular. ABDOMEN: Soft and nontender. Slightly obese EXTREMITIES: No clubbing or cyanosis. CROSS CUT SAW OPERATOR: Awake, alert, and oriented x3. No focal deficit. Impressions: 1. Obstructive sleep apnea-hypopnea syndrome. Patient demonstrated great compliance with treatment, benefiting from treatment. 2. Mild obesity, patient increased weight on 5 pounds comparing with the previous visit. 3. Hyperlipidemia. 4. History of allergy. 5. History of sinusitis. 6. History of TMJ problems. 7. Status post oophorectomy. I slightly increased maximal AutoPap pressure to 12.6 cm of water. Plan: 1. Continue using PAP equipment every night for the whole night. 2. Sleep hygiene with regular time in bed for at least 7.5-8 hours 3. PAP unit should stay lower then position of the head. 4. Advised patient to remove all remaining water from humidifier canister daily and make it dry after each usage. Refill canister with fresh distilled water before each usage. 5. Watching and losing weight. 6. Precautions related to driving. No driving if feel any sleepiness. 7. I will maintain prescription for PAP supplies including mask, tube, filters. 8. Follow up visit in 6 months or earlier if patient has any problems. Thank you very much for allowing me to participate in the management of your patient. Horacio Bello MD, PhD, FAASM. Diplomat of [place] Board [employer] Sleep Medicine, Sleep Medicine Board by [place] Board of Internal Medicine Guide Plant [facility] [place] Objective Home Medications: Home Medications Medication Instructions Recorded Confirmed Type Amitriptyline HCl [Elavil] 10 mg PO HS 03/03/17 04/23/23 History Cetirizine HCl [Zyrtec] 10 mg PO DAILY 03/03/17 04/23/23 History Fluticasone Nasal [place] [Flonase 1 spray EA NOSTRIL DAILY 03/03/17 03/03/17 History Nasal [place]] Gabapentin 600 mg PO HS 03/03/17 04/23/23 History Simvastatin [Zocor] 20 mg PO HS 03/03/17 08/27/23 History Rizatriptan Benzoate [Rizatriptan] 5 mg PO PRN 04/23/23 History
== END ==
LOC: 3 N SLEEP 11:02
PROVIDERS: ATTEND Internal Medicine
DX: G47.33 Obstructive sleep apnea (adult) (pediatric) (principal); E66.9 Obesity, unspecified; E78.5 Hyperlipidemia, unspecified; Z87.09 Personal history of other diseases of the respiratory system; Z87.39 Personal history of other diseases of the musculoskeletal system and connective tissue; Z98.890 Other specified postprocedural states; Z99.89 Dependence on other enabling machines and devices; Z91.09 Other allergy status, other than to drugs and biological substances; Z88.1 Allergy status to other antibiotic agents; Z88.8 Allergy status to other drugs, medicaments and biological substances; Z90.722 Acquired absence of ovaries, bilateral
CPT/HCPCS: 99212

== ENCOUNTER → 2023-10-19 | Outpatient (CLI) | payer MEDICARE ==
--- NOTE | 2023-10-19 09:44 | MM ---
Reason for Exam: Follow-up at short interval from prior study. Last screening mammogram was performed 6 month(s) ago. Patient History: Menarche at age 13. First Full-Term at age 29. Left ovary removed at age 61. Postmenopausal. Estrogen for 1 year from age 48 until age 49. Sister had breast cancer, age 54. Risk Values: Kandy 5 year model risk: 3.3%. NCI Lifetime model risk: 11.1%. Prior Study Comparison: 04/07/2022 Bilateral MG 3D screening mammo w/cad, [facility]. 04/13/2023 Bilateral MG 3D screening mammo w/cad, [facility]. 04/17/2023 Bilateral MG 3D work up w/cad [facility], [facility]. Tissue Density: Left: The breasts are heterogeneously dense, which may obscure small masses. Findings: Analyzed By CAD. No evidence for mass or distortion. No suspicious calcifications. Overall Assessment: Benign, BI-RAD 2 Management: Screening Mammogram of both breasts in 6 months. . Results were given to the patient verbally at the time of exam. Patient should continue monthly self-breast exams. A clinical breast exam by your physician is recommended on an annual basis. This exam should not preclude additional follow-up of suspicious palpable abnormalities. Note on Kandy scores and lifetime risk: 1. A Kandy score greater than 3% is considered moderate risk. If this is the case, consider specialist referral to assess eligibility for a risk reducing agent. 2. If overall lifetime risk for the development of breast cancer is 20% or higher, the patient may qualify for future screening with alternating mammogram and breast MRI. Electronically signed and approved by: Villa Hoang M.D. Radiologis
== END | disposition home or self-care (01) ==
LOC: RADMAMWWP 09:21
PROVIDERS: ATTEND Internal Medicine Geriatric Medicine
DX: R92.8 Other abnormal and inconclusive findings on diagnostic imaging of breast
CPT/HCPCS: 77061; 77065

== ENCOUNTER → 2024-05-12 | Outpatient (CLI) | payer MEDICARE ==
[2024-05-12 10:44] VITALS: BP 122/80; PULSE 92; RESP 16; TEMP 98.8
== END ==
LOC: 3 N SLEEP 10:41
PROVIDERS: ATTEND Internal Medicine
DX: G47.33 Obstructive sleep apnea (adult) (pediatric) (principal); E66.9 Obesity, unspecified; Z68.32 Body mass index [BMI] 32.0-32.9, adult; T78.40XA Allergy, unspecified, initial encounter; E78.5 Hyperlipidemia, unspecified; Z87.39 Personal history of other diseases of the musculoskeletal system and connective tissue; Z87.09 Personal history of other diseases of the respiratory system; Z90.721 Acquired absence of ovaries, unilateral; Z91.048 Other nonmedicinal substance allergy status; Z88.1 Allergy status to other antibiotic agents; Z88.5 Allergy status to narcotic agent; Z88.8 Allergy status to other drugs, medicaments and biological substances
CPT/HCPCS: 99212

== ENCOUNTER → 2024-07-18 | Outpatient (CLI) | payer MEDICARE ==
--- NOTE | 2024-07-19 06:32 | BD ---
EXAMINATION TYPE: Axial Bone Density DATE OF EXAM: 07/18/2024 CLINICAL HISTORY: 69 years old Female. ICD-10 CODE: M81.0 OSTEOPOROSIS , Additional History: Height: 64 in Weight: 186 lbs FRAX RISK QUESTIONS: History of Fracture in Adulthood: rt foot fx age 40 Secondary Osteoporosis: 3. Menopause before 45: age 43 EXAM MEASUREMENTS: Bone mineral densitometry was performed using the [employer] System. Bone mineral density as measured about the Lumbar spine is: ----- L1-L4(G/cm2): 1.298 T Score Values are as follows: ----- L1: 0.0 ----- L2: 0.1 ----- L3: 1.6 ----- L4: 1.8 ----- L1-L4: 1.0 Z Score Values are as follows: ----- L1: 1.0 ----- L2: 1.1 ----- L3: 2.6 ----- L4: 2.8 ----- L1-L4: 2.0 Bone mineral density has: Increased 5.4% since study of: 04/07/2022 Bone mineral density about the R hip (g/cm2): 1.016 Bone mineral density about the L hip (g/cm2): 1.065 T Score values are as follows: -----R Neck: -1.2 -----L Neck: -1.2 -----R Total: 0.1 -----L Total: 0.5 Z Score values are as follows: -----R Neck: -0.1 -----L Neck: 0.0 -----R Total: 1.0 -----L Total: 1.4 Bone mineral density has: Decreased -1.6% since study of: 04/07/2022 FRAX%s: The graph provided illustrates a 14.1% chance for a major osteoporotic fx and a 1.4% chance f or the hips probability for fx in 10 years time. IMPRESSION: Osteopenia (T Score between -2.5 and -1) remains present. There is slightly increased risk of fracture and the patient may be considered for treatment. Re-Screen 2-5 years. NOTE: T-SCORE=SD OF THE YOUNG ADULT MEAN. [facility], , 07/19/2024 6:30 AM
--- NOTE | 2024-07-19 07:25 | MM ---
Reason for Exam: Screening (asymptomatic). Last mammogram was performed 1 year(s) and 3 month(s) ago. Patient History: Menarche at age 13. First Full-Term at age 29. Left ovary removed at age 61. Postmenopausal. Estrogen for 1 year from age 48 until age 49. Sister had breast cancer, age 54. Risk Values: Kandy 5 year model risk: 3.4%. NCI Lifetime model risk: 10.7%. Prior Study Comparison: 04/13/2023 Bilateral MG 3D screening mammo w/cad, [facility]. 04/17/2023 Bilateral MG 3D work up w/cad [facility], [facility]. 10/19/2023 Left MG 3D diag mammo w/cad , [facility]. Tissue Density: The breasts are heterogeneously dense, which may obscure small masses. Findings: Analyzed By CAD. Prominent but benign-appearing bilateral axillary lymph nodes are redemonstrated. There are scattered benign-appearing round calcifications throughout the right breast. There are increasing slightly indeterminate loosely grouped calcifications centrally in the left breast. In addition there appears to be 8mm lobulated mass in the left breast on CC image 29, less well seen on MLO images. Overall Assessment: Incomplete: need additional imaging evaluation, BI-RAD 0 Management: Diagnostic Mammogram of the left breast. Spot magnification views of calcifications. Spot 3-D cc and 3-D true lateral views left breast. Patient should continue monthly self-breast exams. A clinical breast exam by your physician is recommended on an annual basis. This exam should not preclude additional follow-up of suspicious palpable abnormalities. Note on Kandy scores and lifetime risk: 1. A Kandy score greater than 3% is considered moderate risk. If this is the case, consider specialist referral to assess eligibility for a risk reducing agent. 2. If overall lifetime risk for the development of breast cancer is 20% or higher, the patient may qualify for future screening with alternating mammogram and breast MRI. [facility], , 07/19/2024 7:22 AM. Electronically signed and approved by: Scott Castillo M.D.
== END | disposition home or self-care (01) ==
LOC: RADBDWWP 15:18
PROVIDERS: ATTEND Internal Medicine Geriatric Medicine
DX: Z12.31 Encounter for screening mammogram for malignant neoplasm of breast (principal); M81.0 Age-related osteoporosis without current pathological fracture; M85.89 Other specified disorders of bone density and structure, multiple sites; R92.333 Mammographic heterogeneous density, bilateral breasts; R92.1 Mammographic calcification found on diagnostic imaging of breast; Z78.0 Asymptomatic menopausal state; Z80.3 Family history of malignant neoplasm of breast
CPT/HCPCS: 77063; 77067; 77080

== ENCOUNTER → 2024-07-20 | Outpatient (CLI) | payer MEDICARE ==
--- NOTE | 2024-07-20 13:07 | MM ---
Reason for Exam: Additional evaluation requested from abnormal screening. Last screening mammogram was performed less than 1 month ago. Patient History: Menarche at age 13. First Full-Term at age 29. Left ovary removed at age 61. Postmenopausal. Estrogen for 1 year from age 48 until age 49. Sister had breast cancer, age 54. Risk Values: Kandy 5 year model risk: 3.4%. NCI Lifetime model risk: 10.7%. Prior Study Comparison: 04/17/2023 Bilateral MG 3D work up w/cad KARIS, [facility]. 10/19/2023 Left MG 3D diag mammo w/cad [facility], [facility]. 07/18/2024 Bilateral MG 3D screening mammo w/cad, [facility]. Tissue Density: Left: The breasts are heterogeneously dense, which may obscure small masses. Findings: Analyzed By CAD. Suspicious new group of microcalcifications in the left breast persist on additional view. No new suspicious mass persists. Overall Assessment: Suspicious, BI-RAD 4 Management: Stereotactic Core Biopsy of the left breast. . Results were given to the patient verbally at the time of exam. Patient should continue monthly self-breast exams. A clinical breast exam by your physician is recommended on an annual basis. This exam should not preclude additional follow-up of suspicious palpable abnormalities. Note on Kandy scores and lifetime risk: 1. A Kandy score greater than 3% is considered moderate risk. If this is the case, consider specialist referral to assess eligibility for a risk reducing agent. 2. If overall lifetime risk for the development of breast cancer is 20% or higher, the patient may qualify for future screening with alternating mammogram and breast MRI. [facility], , 07/20/2024 1:04 PM. Electronically signed and approved by: Scott Castillo M.D.
== END | disposition home or self-care (01) ==
LOC: RADMAMWWP 12:06
PROVIDERS: ATTEND Internal Medicine Geriatric Medicine
DX: R92.8 Other abnormal and inconclusive findings on diagnostic imaging of breast (principal); R92.332 Mammographic heterogeneous density, left breast; Z78.0 Asymptomatic menopausal state; Z80.3 Family history of malignant neoplasm of breast
CPT/HCPCS: 77061; 77065

== ENCOUNTER → 2024-08-01 | Day surgery (SDC) | payer MEDICARE ==
[2024-08-01] MEDS: ALPRAZolam 0.25 MG TAB PO PRN (10:08)
[2024-08-01 10:15] VITALS: RESP 16
[2024-08-01 11:12] VITALS: BP 124/80; PULSE 90; TEMP 98.3
--- NOTE | 2024-08-05 09:58 | MM ---
Risk Values: Kandy 5 year model risk: 3.4%. NCI Lifetime model risk: 10.7%. Prior Study Comparison: 10/19/2023 Left MG 3D diag mammo w/cad LT, [facility]. 07/18/2024 Bilateral MG 3D screening mammo w/cad, [facility]. 07/20/2024 Left MG 3D work up w/cad [facility], [facility]. Pathology Description: Marker Left Behind. Specimen Radiograph. Calcium Found: Yes Approach: CC FA Needle Type: Eviva Cores: 6 Skin Nicks: 1 Gauge: 9 The procedure of stereotactic guided core biopsy was explained to the patient. Benefits, alternatives, and risks were discussed. An informed consent was then obtained. The shortness pathway for biopsy was chosen. Shortness pathway was superior approach. A vacuum assisted biopsy gun was used to obtain multiple core samples. The patient tolerated the procedure well without any immediate complication. The patient was kept in the radiology department for short stay after the procedure and then discharged home in stable condition. Targeted calcifications are identified in specimen mammogram. Post biopsy mammogram performed shows the clip to appear in satisfactory position relative to the targeted area of concern on the preprocedure images. Impression: Successful, Uncomplicated Stereotactic Guided Core Biopsy Of Area Of Concern In The left Breast. [facility], , 08/01/2024 11:31 AM. Pathology Results: Result: Malignant, Ductal carcinoma in situ, comedo type. Pathology and radiology were reviewed. Findings are concordant. 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 Background breast with proliferative fibrocystic change having columnar cell change/hyperplasia, sclerosing adenosis and focal calcification. Intraductal papilloma present. Overall Assessment: Malignant Management: Surgical Consultation of the left breast. Electronically signed and approved by: Tigre Gudino DO
== END ==
LOC: RADMAMWWP 09:35
PROVIDERS: ATTEND Surgery
DX: D05.12 Intraductal carcinoma in situ of left breast (principal); N60.22 Fibroadenosis of left breast
CPT/HCPCS: 88305; 88342; 88341; 19081; A4648; J2003